=== PATIENT | male | born 1990 | race Caucasian/White ===

== ENCOUNTER 2019-09-14 10:39 | Emergency (ER) | payer SELFPAY ==
--- NOTE | ~2019-09-14 | XR_ITS ---
LUMBAR SPINE INDICATION: Low back pain TECHNIQUE: 5 views lumbar spine COMPARISON: None FINDINGS: No fracture, subluxation or dislocation. No evidence for spondylolysis or spondylolisthesi s. Vertebral bodies and disk spaces are preserved. IMPRESSION: 1: No significant abnormality of the lumbar spine identified. Reviewed, dictated and finalized at [facility].
[2019-09-14 10:50] VITALS: BP 159/104; PULSE 115; RESP 18; TEMP 37.1; O2SAT 97
--- NOTE | 2019-09-14 12:46 | ED.BACK ---
HPI - Back Pain/Injury General Chief Complaint: Back Pain/Injury Stated Complaint: lower back pain Time Seen by Provider: 09/14/19 11:13 Source: patient Mode of arrival: ambulatory Limitations: no limitations History of Present Illness HPI Narrative: patient is a 29-year-old male who presents to emergency department for evaluation of low back pain noting left lower back pain over the SI joint is an aching pain worse for the last 5 days. Has been taking [id number] medications with minimal improvement. Patient denies any fever chills nausea vomiting injury trauma weakness or other complaints. Patient is able to ambulate with normal gait patient has not been seen for this Related Data Allergies Allergy/AdvReac Type Severity Reaction Status Date / Time No Known Allergies Allergy Verified 09/14/19 11:25 Review of Systems Review of Systems: All systems reviewed & are unremarkable except as noted in HPI and below PMFSH Social History Social History (Updated 09/14/19 @ 12:47 by Duong Daniels PA-C) Smoking status: Current every day smoker Gender identity (if verbalized by the patient): Male Exam Narrative: Exam Narrative: GENERAL: Well-appearing, well-nourished, and in no acute distress. HEAD: Normocephalic, atraumatic. EYES: PERRLA and EOMI. ENT: Nares clear, no rhinorrhea or epistaxis. Mucous membranes moist. CHEST: Clear to auscultation. No respiratory distress. No wheezes rales or rhonchi HEART: Regular rate and rhythm. No murmur heard. EXTREMITIES: Normal range of motion. No edema. Tenderness over the left SI joint no deformities otherwise noted no midline tenderness SKIN: Warm, dry, no rash. NEURO: No focal deficits. Alert and oriented x3. Cranial nerves II through XII grossly intact. Motor and sensory intact and symmetrical in the extremities. Normal speech and gait PSYCH: Normal mood and affect. Course Course Emergency Course: Patient in the room in no distress aware of case findings treatment plan and diagnosis agreeing to follow-up as directed Vital Signs Vital signs: Vital Signs Temperature 98.7 F 09/14/19 10:50 Pulse Rate 115 H 09/14/19 10:50 Respiratory Rate 18 09/14/19 10:50 Blood Pressure 159/104 H 09/14/19 10:50 Pulse Oximetry 97 09/14/19 10:50 Temperature 98.7 F 09/14/19 10:50 Pulse Rate 115 H 09/14/19 10:50 Respiratory Rate 18 09/14/19 10:50 Blood Pressure 159/104 H 09/14/19 10:50 Pulse Oximetry 97 09/14/19 10:50 MDM - Back Pain/Injury MDM Narrative Medical decision making narrative: Patients pain is positional in nature and localized to back without signs of cord compression or cauda equina based on neurological exam, skeletal exam and history. No fever or other significant factors to suggest osteomyelitis or spinal epidural abscess. No symptoms or signs to suggest pain is referred from abdominal or / cardiopulmonary sources. No pulsatile masses noted on exam. Patient ambulates with steady gait and is stable for outpatient management given case findings. Discharge Plan Discharge Clinical Impression: Lumbar radiculopathy Patient Disposition: Home, Self-Care Condition: Stable Instructions: Antibiotic Form, Acute Low Back Pain (ED) Additional Instructions: Medications as needed and prescribed. Limit lifting and bending. You may apply heat or cold to the area as needed. Follow up with your doctor for further care in the next 7 days. Contact your doctor or return to the emergency department if you develop problems with bladder or bowel function, weakness or loss of feeling in one or both of your legs, or any other serious concerns. Prescriptions: New cyclobenzaprine 10 mg tablet 10 mg PO TID PRN (Reason: muscle spasm) Qty: 14 RF: 0 naproxen 500 mg tablet 500 mg PO BID PRN (Reason: pain) Qty: 7 RF: 0 Follow-up/Referrals: Herson Erickson MD [Physician] - PHYSICIAN,[employer] [Primary Care Provider] -
== END 2019-09-14 12:56 | disposition home or self-care (01) ==
PROVIDERS: Emergency Provider Emergency Medicine
DX: M54.16 Radiculopathy, lumbar region (principal); F17.200 Nicotine dependence, unspecified, uncomplicated
CPT/HCPCS: 72110; 99283

== ENCOUNTER 2019-09-20 18:44 | Emergency (ER) | payer SELFPAY ==
[2019-09-20 19:06] VITALS: BP 156/95; PULSE 104; RESP 20; TEMP 36.8; O2SAT 97
== END 2019-09-20 19:40 | disposition left against medical advice (07) ==
LOC: CHSED 18:46
PROVIDERS: Emergency Provider Emergency Medicine; PCP Family Medicine
DX: Z53.8 Procedure and treatment not carried out for other reasons (principal)
CPT/HCPCS: 99199

== ENCOUNTER 2020-10-23 16:17 | Emergency (ER) | payer SELFPAY ==
[2020-10-23 16:19] VITALS: BP 145/90; PULSE 108; RESP 20; TEMP 37.4; O2SAT 98
[2020-10-23] MEDS: LIDOCAINE HCL 1% LOCAL INJ 20 ML VIAL (17:54)
--- NOTE | 2020-10-23 17:54 | ED.GENADULT ---
HPI - General Adult General Chief complaint: Wound/Laceration Stated complaint: Bite down south Time Seen by Provider: 10/23/20 16:26 Source: patient, family and RN notes reviewed Mode of arrival: ambulatory Limitations: no limitations History of Present Illness HPI narrative: Patient is a 30-year-old male who presents with wound in the perineum just below the scrotum notes that it started as a small pimple and has worsened has been able to express purulent drainage presents to emergency department given increasing in size over the last day patient denies fever chills nausea vomiting or other complaints Related Data Allergies Allergy/AdvReac Type Severity Reaction Status Date / Time No Known Allergies Allergy Verified 10/23/20 16:23 Review of Systems Review of Systems: All systems reviewed & are unremarkable except as noted in HPI and below PMFSH Past Medical History Medical History Chronic anxiety History of fracture of right ankle Pain of left sacroiliac joint Surgical History Surgical History Hx of foot surgery (~2006) Family History Family History (Updated 09/16/19 @ 15:11 by Anabel Apodaca MA) Mother No problems noted. Grandparent Hypertension Social History Social History Smoking status: Current every day smoker Gender identity (if verbalized by the patient): Male Exam Narrative: Exam Narrative: GENERAL: Well-appearing, well-nourished, and in no acute distress. HEAD: Normocephalic, atraumatic. EYES: PERRLA and EOMI. ENT: Nares clear, no rhinorrhea or epistaxis. Mucous membranes moist. CHEST: Clear to auscultation. No respiratory distress. No wheezes rales or rhonchi HEART: Regular rate and rhythm. No murmur heard. Normal peripheral pulses. EXTREMITIES: Normal range of motion. No edema. SKIN: Warm, dry, no rash. Patient with 1 cm tender nonerythematous draining lesion in the right lower perineum just below the scrotum NEURO: No focal deficits. Alert and oriented x3. Neurovascularly intact PSYCH: Normal mood and affect. Course Course Emergency Course: Patient in the room no distress aware of case findings treatment plan and diagnosis agreeing to follow-up as instructed Vital Signs Vital signs: Vital Signs Temperature 99.3 F 10/23/20 16:19 Pulse Rate 108 H 10/23/20 16:19 Respiratory Rate 20 10/23/20 16:19 Blood Pressure 145/90 H 10/23/20 16:19 Pulse Oximetry 98 10/23/20 16:19 Temperature 99.3 F 10/23/20 16:19 Pulse Rate 108 H 10/23/20 16:19 Respiratory Rate 20 10/23/20 16:19 Blood Pressure 145/90 H 10/23/20 16:19 Pulse Oximetry 98 10/23/20 16:19 Procedures Abscess I/D luigi-rectal: Date of Incision: 10/23/20 Time of Incision: 17:58 Side (if applicable): right Local Anesthetic: lidocaine 1% Technique: incised with #11 blade Amount of fluid expressed (mL): 1 Irrigation: No Packing used?: none I&D Results: Pus and Blood Medical Decision Making MDM Narrative Medical decision making narrative: Patient had I&D of skin abscess cultures were obtained patient will be following with primary care for further evaluation given reasons to return Vital Signs Vital Signs: Vital Signs Temperature 99.3 F 10/23/20 16:19 Pulse Rate 108 H 10/23/20 16:19 Respiratory Rate 20 10/23/20 16:19 Blood Pressure 145/90 H 10/23/20 16:19 Pulse Oximetry 98 10/23/20 16:19 Temperature 99.3 F 10/23/20 16:19 Pulse Rate 108 H 10/23/20 16:19 Respiratory Rate 20 10/23/20 16:19 Blood Pressure 145/90 H 10/23/20 16:19 Pulse Oximetry 98 10/23/20 16:19 Discharge Plan Discharge Clinical Impression: Abscess Patient Disposition: Home, Self-Care Condition: Stable Instructions: Antibiotic Form, Abscess (ED)
[2020-10-23] MEDS: HYDROcodone/acetaminophen (*CRX) 5-325 MG TABLET 1 TAB PO (17:55)
[2020-10-23] MEDS: IBUPROFEN 600 MG TABLET PO (17:55)
== END 2020-10-23 18:20 | disposition home or self-care (01) ==
PROVIDERS: Emergency Provider Emergency Medicine
DX: L02.214 Cutaneous abscess of groin (principal); F17.200 Nicotine dependence, unspecified, uncomplicated
CPT/HCPCS: 10060; 46040; 87070; 87075; 87147; 87186; 87205; 99283; A9270

== ENCOUNTER 2020-11-27 09:10 | Emergency (ER) | payer OTHER, SELFPAY ==
--- NOTE | ~2020-11-27 | CT_ITS ---
EXAMINATION: CT diagnostic chest wo con DATE: 11/27/2020 10:58 INDICATION: Chest pain for 2 days. Covid-positive. TECHNIQUE: Computed tomography (CT) of the chest was performed without intravenous contrast. Automate d exposure control and iterative reconstruction technique were employed. Exam dose: 273.25 mGy-cm to jacques exam DLP. COMPARISON: None FINDINGS: Scattered occasional bilateral patchy mild groundglass infiltrates, consistent with mild bi lateral multifocal pneumonia. No hilar or mediastinal mass lesion or lymphadenopathy. Normal heart size. No pericardial or pleural effusion. Normal morphology of the adrenal glands. Included upper abdominal structures are unremarkable. Included skeletal structures are unremarkable. IMPRESSION: Scattered occasional bilateral patchy pulmonary infiltrates consistent with bilateral mu ltifocal pneumonia Reviewed, dictated and finalized at [facility]. Reviewed, dictated and finalized at [facility]. IMPRESSION: Scattered occasional bilateral patchy pulmonary infiltrates consis tent with bilateral multifocal pneumonia
[2020-11-27 09:30] VITALS: BP 157/110; PULSE 70; RESP 16; TEMP 36.7; O2SAT 97
--- NOTE | 2020-11-27 09:32 | ECG_ITS ---
Measurements Intervals [place] Rate: 64 P: 56 W[place]: 172 QRS: 61 QRSD: 98 T: 48 QT: 372 QTc: 386 Interpretive Statements SINUS RHYTHM POSSIBLE LEFT ATRIAL ENLARGEMENT INCOMPLETE RIGHT BUNDLE BRANCH BLOCK ST ELEVATION IN DIFFUSE LEADSCONSISTENT EARLY REPOLARIZATION BORDERLINE ECG Electronically Signed On 11-28-2020 7:04:29 CDT by Nick English D.O.
[2020-11-27] MEDS: ONDANSETRON INJ 4 MG/2 ML VIAL IV PUSH (10:05)
--- NOTE | 2020-11-27 10:06 | PC.NURSE ---
Pt declines morphine for pain at this time.
[2020-11-27 10:07] LABS: Basophils Absolute Auto 0.02 K/mm3 (0.00-0.10); Basophils Percent Auto 0.2 % (0.0-1.0); Eosinophils Absolute Auto 0.12 K/mm3 (0.02-0.50); Eosinophils Percent Auto 1.1 % (1.0-6.0); Hematocrit 49.4 % (40.0-54.0); Hemoglobin 17.3 g/dL (14.0-18.0); Immature Granulocyte Absolute 0.03 K/mm3 (0.00-0.00); Immature Granulocyte Percent A 0.3 % (0.0-0.0); Lymphocytes Absolute Auto 1.29 K/mm3 (1.10-4.50); Lymphocytes Percent Auto 12.1 % (18.0-42.0); Mean Corpuscular Hemoglobin 30.9 pg (27.0-31.0); Mean Corpuscular Volume 88.4 fL (78.0-102.0); Mean Platelet Volume 9.8 fl (8.7-11.0); Monocytes Absolute Auto 0.91 K/mm3 (0.10-0.90); Monocytes Percent Auto 8.5 % (2.0-11.0); Neutrophils Absolute Auto 8.3 K/mm3 (1.7-7.2); Neutrophils Percent Auto 77.8 % (50.0-70.0); Platelet Count Result 293 K/mm3 (150-420); Red Blood Count 5.59 M/mm3 (4.70-6.10); Red Cell Distribution Width 12.1 % (11.6-14.4); White Blood Count 10.7 K/mm3 (4.8-10.8)
--- NOTE | 2020-11-27 10:10 | ED.CHESTPAIN ---
HPI - Chest Pain General Chief Complaint: Chest Pain Stated Complaint: right side chest pain Time Seen by Provider: 11/27/20 09:14 Source: patient and RN notes reviewed Mode of arrival: ambulatory Limitations: no limitations History of Present Illness complaint: chest pain (lower right lateral lung pleuritic pain) Pertinent past history: other (covid + x several days. pt is a smoker.) Onset (ago): day(s) (1) Timing of current episode: constant Prior episodes: No Onset: during rest and during exertion Pain location: right chest and lateral Pain radiation: none Severity: moderate Pain scale (0-10): 6 Quality: dull and tearing Relieving factors: nothing Exacerbating factors: inspiration Context: recent illness Associated symptoms: cough Treatment prior to arrival: none Risk Factors Coronary artery disease risk factors: smoking history Thoracic aortic dissection risk factors: none Related Data Allergies Allergy/AdvReac Type Severity Reaction Status Date / Time No Known Allergies Allergy Verified 10/23/20 16:23 Review of Systems Review of Systems: All systems reviewed & are unremarkable except as noted in HPI and below Constitutional: Constitutional: Reports as per HPI and Reports no additional constitutional complaints Eyes: Eyes: Reports as per HPI and Reports no additional eye complaints ENT: Reports system reviewed and no additional complaints, except as documented and Reports as per HPI Cardiovascular: Cardiovascular: Reports as per HPI, Reports no additional cardiovascular complaints and Reports chest pain Respiratory: Respiratory: Reports as per HPI and Reports no additional respiratory complaints Gastrointestinal: Gastrointestinal: Reports as per HPI and Reports no additional gastrointestinal complaints Genitourinary: Genitourinary: Reports no additional male genitourinary complaints and Reports as per HPI Musculoskeletal: Musculoskeletal: Reports no additional musculoskeletal complaints and Reports as per HPI Integumentary/Breasts: Skin/Breast: Reports system reviewed and no additional complaints, except as docu and Reports as per HPI Neurologic: Reports system reviewed and no additional complaints, except as documented and Reports as per HPI Psychiatric: Psychiatric: Reports no additional psychiatric complaints and Reports as per HPI Endocrine: Endocrine: Reports no additional endocrine complaints and Reports as per HPI Hematologic/Lymphatic: Hematologic/Lymphatic: Reports no additional hematologic/lymphatic complaints and Reports as per HPI Allergic/Immunologic: Allergic/Immunologic: Reports no additional allergic/immunologic complaints and Reports as per HPI [facility] Past Medical History Medical History Chronic anxiety History of fracture of right ankle Pain of left sacroiliac joint Surgical History Surgical History Hx of foot surgery (~2006) Family History Family History Mother No problems noted. Grandparent Hypertension Social History Social History Smoking status: Current every day smoker Gender identity (if verbalized by the patient): Male Exam Const: General: no acute distress and alert Nutritional Appearance: well nourished Orientation/consciousness: patient oriented x3 Limitations: no limitations HENMT: Head: normal to inspection Ears: external ears normal and TM's normal bilaterally General nose exam: Normal external nose present and Normal nares present Mouth: Yes lip normal and Yes moist mucous membranes Teeth and gingiva: dentition normal Eyes: Conjunctivae: conjunctivae normal Pupils: Equal, round and reactive pupils present EOM: EOMs intact bilaterally Neck: Neck: normal visual inspection Chest: Chest palpation & inspection: sheridan
[2020-11-27 10:14] VITALS: BP 150/104; PULSE 76; RESP 20; O2SAT 97
[2020-11-27] MEDS: cloNIDine HCL 0.2 MG TABLET PO (10:24)
[2020-11-27] MEDS: methylPREDNISolone SOD SUCC 125 MG VIAL IV PUSH (10:24)
[2020-11-27 10:36] LABS: Alanine Aminotransferase 57 U/L (16-63); Albumin Level 4.5 g/dL (3.4-5.0); Alkaline Phosphatase 100 U/L (46-116); Anion Gap 11 mmol/L (8-16); Aspartate Amino Transferase 32 U/L (15-37); Bilirubin,Total 0.7 mg/dL (0.00-1.00); Blood Urea Nitrogen 15 mg/dL (7-18); Calcium 9.2 mg/dL (8.5-10.1); Carbon Dioxide 26 mmol/L (21-32); Chloride 103 mmol/L (98-108); Estimated CRCL calculation 118 ml/min; Estimated Glomerular Filt Rate > 60; Glucose 112 mg/dL (70-99); Osmolality Calculated 291 mOsm/kg (285-295); Potassium 4.4 mmol/L (3.5-5.1); Sodium 140 mmol/L (136-145); Total Protein 8.5 g/dL (6.4-8.2)
[2020-11-27 10:37] LABS: Troponin I < 4.0 ng/L (0.00-60.4)
[2020-11-27 11:17] VITALS: BP 131/94; PULSE 81; O2SAT 96
[2020-11-27] MEDS: AZITHROMYCIN 250 MG TABLET 500 MG PO (12:25)
[2020-11-27] MEDS: KETOROLAC (*BKC) 60 MG/2 ML VIAL IM (12:29)
[2020-11-27 12:45] LABS: Base Excess ABG -0.1 mmol/L (0-2); HCO3 ABG 23.3 mmol/L (23-29); Oxygen Content ABG 24.3 %vol (16.0-22.0); Oxygen Saturation ABG 96.6 % (95-97); Oxyhemoglobin 95.9 % (94-100); PCO2 ABG 34.8 mmHg (35-45); PO2 ABG 83.6 mmHg (80-90); pH ABG 7.44 (7.35-7.45)
[2020-11-27 12:46] LABS: Device ROOM AIR; Modified Allen's Test Pass; Site Drawn RIGHT RADIAL
[2020-11-27 12:52] VITALS: BP 131/81; PULSE 80; RESP 16; O2SAT 96
== END 2020-11-27 12:53 | disposition home or self-care (01) ==
PROVIDERS: Emergency Provider Emergency Medicine
DX: U07.1 COVID-19 (principal); J12.82 Pneumonia due to coronavirus disease 2019; R09.1 Pleurisy
CPT/HCPCS: 36415; 36600; 71250; 80053; 82805; 83605; 84484; 85025; 93005; 96365; 96372; 96375; 99283; 99284; A9270; J0696; J1885; J2405; J2930

== ENCOUNTER 2020-12-24 10:52 | Emergency (ER) | payer SELFPAY ==
[2020-12-24 11:00] VITALS: BP 156/100; PULSE 91; RESP 20; TEMP 37.2; O2SAT 97
[2020-12-24] MEDS: ACETAMINOPHEN 500 MG TABLET 1000 MG PO (11:19)
[2020-12-24 11:32] LABS: Influenza Control Valid (Valid)
[2020-12-24 11:33] LABS: SARS-CoV-2 Ag Negative (Negative)
[2020-12-24 11:36] VITALS: TEMP 37.1
--- NOTE | 2020-12-24 11:37 | ED.URI ---
HPI - URI/Sore Throat General Chief Complaint: Upper Respiratory Infection Stated Complaint: sore throat, chills, fatigue Source: patient Mode of arrival: ambulatory Limitations: no limitations History of Present Illness HPI Narrative: This is a 30-year-old gentleman that presents with a cough and congestion, was diagnosed with COVID approximately 1 month ago. Currently there is no shortness of breath no fever chills, although he feels like he has above ejected of fever with chills with a nonproductive cough with no nausea vomiting no chest pain. MD elicited complaint: fever and cough Onset (ago): day(s) Consistency: constant Severity: moderate Able to tolerate fluids by mouth: Yes Related Data Allergies Allergy/AdvReac Type Severity Reaction Status Date / Time No Known Allergies Allergy Verified 10/23/20 16:23 Review of Systems Review of Systems: All systems reviewed & are unremarkable except as noted in HPI and below PMFSH Past Medical History Medical History Chronic anxiety History of fracture of right ankle Pain of left sacroiliac joint Surgical History Surgical History Hx of foot surgery (~2006) Family History Family History Mother No problems noted. Grandparent Hypertension Social History Social History Smoking status: Current every day smoker Gender identity (if verbalized by the patient): Male Exam Const: General: no acute distress and alert Orientation/consciousness: patient oriented x3 HENMT: Head: normal to inspection Eyes: Conjunctivae: conjunctivae normal Pupils: Equal, round and reactive pupils present Neck: Neck: normal visual inspection Chest: Chest palpation & inspection: normal inspection of the chest Resp: Effort & Inspection: normal respiratory effort Auscultation: clear to auscultation bilaterally Cardio: Rate: regular rate Rhythm: regular rhythm GI: GI Palp: Yes Soft to palpation Urinary Catheter: Urinary Catheter: patent and draining Skin: General skin exam: normal color Rashes: no rashes Psych: Mental Status: mental status grossly normal Course Course Emergency Course: A strep, COVID and influenza are negative will send antibiotic and a cough I will medicine to his pharmacy and will give him a shot of ceftriaxone IM prior to departure from the ER. Vital Signs Vital signs: Vital Signs Temperature 37.2 C 12/24/20 11:00 Pulse Rate 91 12/24/20 11:00 Respiratory Rate 20 12/24/20 11:00 Blood Pressure 156/100 H 12/24/20 11:00 Pulse Oximetry 97 12/24/20 11:00 Temperature 37.1 C 12/24/20 11:36 Pulse Rate 91 12/24/20 11:00 Respiratory Rate 20 12/24/20 11:00 Blood Pressure 156/100 H 12/24/20 11:00 Pulse Oximetry 97 12/24/20 11:00 MDM - URI/Sore Throat Lab Data Labs: Lab Results 12/24/20 12/24/20 Range/Units 11:07 11:07 Influenza Type A Ag Negative (Negative) Influenza Type B Ag Negative (Negative) SARS-CoV-2 Ag (Rapid) Negative (Negative) Grp A Beta Strep Ag Negative Critical Care Time Critical Care Time Critical Care Time: No Discharge Plan Discharge Clinical Impression: URI with cough and congestion Patient Disposition: Home, Self-Care Condition: Stable Instructions: Antibiotic Form, Upper Respiratory Infection (ED) Additional Instructions: take medicine as prescribed and follow-up with primary care physician if symptoms persist or worsen. Prescriptions: New levofloxacin 500 mg tablet 500 mg PO DAILY 7 Days Qty: 7 RF: 0 benzonatate [Tessalon Perles] 100 mg capsule 100 mg PO TID Qty: 20 RF: 0 Follow-up/Referrals: UNKNOWN,DOCTOR [Primary Care Provider] - Time of Disposition: 11:41
[2020-12-24] MEDS: cefTRIAXone 1 GM VIAL IM (11:40)
[2020-12-24] MEDS: LIDOCAINE HCL 1% LOCAL INJ 20 ML VIAL (11:40)
[2020-12-24 11:42] VITALS: BP 140/87; PULSE 90; RESP 18; TEMP 37.1; O2SAT 99
== END 2020-12-24 11:51 | disposition home or self-care (01) ==
PROVIDERS: Emergency Provider Emergency Medicine
DX: J06.9 Acute upper respiratory infection, unspecified (principal); R05 Cough; Z20.822 Contact with and (suspected) exposure to COVID-19
CPT/HCPCS: 87081; 87426; 87804; 87880; 96372; 99283; C9803; J0696

== ENCOUNTER 2020-12-26 11:56 | Inpatient (IN) | payer SELFPAY ==
[2020-12-26] VITALS (25 sets, daily range): BP systolic 132–156; BP diastolic 76–98; PULSE 102–126; RESP 13–28; TEMP 36.9–38.2; O2SAT 94–100
--- NOTE | ~2020-12-26 | CT_ITS ---
EXAMINATION: CT abdomen pelvis w con DATE: 12/26/2020 14:01 INDICATION: Nausea and vomiting. Abnormal liver function tests. Fever and chills. TECHNIQUE: Computed tomography (CT) of the abdomen and pelvis was performed with 100 mL Omnipaque 350 intravenous contrast. Automated exposure control and iterative reconstruction technique were employe d. The dose-length product was 696.68 mGy-cm. COMPARISON: Chest CT 11/27/2020 FINDINGS: The visualized portions of the lung bases demonstrate mild atelectasis. No pleural effusion . The heart size is normal. No pericardial effusion. The liver, gallbladder, spleen, pancreas, adrena l glands, and kidneys are normal. There are no dilated loops of bowel. The appendix is normal. There are no pathologically enlarged lymph nodes. There is no free intraperitoneal fluid. There are bilater al inguinal hernias containing fat. There are benign bone islands in the pelvis. There is mild lumbar spondylosis. IMPRESSION: 1. No etiology for the patient's symptoms. Reviewed, dictated and finalized at location A.
--- NOTE | ~2020-12-26 | XR_ITS ---
XR chest 2V 12/26/2020 12:55 Indication: Shortness of breath Procedure: 2 view chest Comparison: No prior studies for comparison. Findings: Subtle ill-defined patchy bilateral infiltrates, suspicious for pneumonia. No pleural effus ion. Heart size normal. No pneumothorax. Impression: 1: Subtle patchy bilateral infiltrates, suspicious for pneumonia. Reviewed, dictated and finalized at location A. Impression: 1: Subtle patchy bilateral infiltrates, suspicious for pneumonia.
--- NOTE | ~2020-12-26 | US_ITS ---
EXAMINATION: US abdomen limited EXAM DATE: 12/27/2020 11:39 INDICATION: Elevated alk phosphatase, liver function tests. TECHNIQUE: Multiple grayscale and Doppler images of the abdomen right upper quadrant were obtained (b y a technologist who performed the scan) and subsequently reviewed. Correlation is made to CT abdomen pelvis from yesterday. FINDINGS: The pancreatic head and body are normal in appearance. The pancreatic tail is not visualized. The l iver has normal echogenicity and contour. There are no focal liver lesions identified. There is no evidence of intrahepatic biliary duct dilation. Portal venous flow was seen in the hepatopedal, nor mal direction and has normal Doppler waveform. No right-sided hydronephrosis. Common bile duct measures 5 mm, which is normal. The gallbladder wall is normal in thickness, with ex pected amount of distention. No sonographic evidence of pericholecystic fluid. There is no cholelit hiases. Technologist performing exam reports patient did not demonstrate sonographic Davidson's sign. Please note that this sign is less reliable in patients who have received pain medication. IMPRESSION: 1. Unremarkable abdominal ultrasound exam. Reviewed, dictated and finalized at location B.
--- NOTE | ~2020-12-26 | CT_ITS ---
EXAMINATION: CT soft tissue neck w con DATE: 12/26/2020 14:02 INDICATION: Sore throat. Fever and chills. TECHNIQUE: Computed tomography (CT) of the neck was performed with 100 mL Omnipaque-350 intravenous c ontrast. Automated exposure control and iterative reconstruction technique were employed. The dose-le ngth product was 531.69 mGy-cm. COMPARISON: Chest CT 11/27/2020 FINDINGS: There are sialoliths in the right parotid gland. There is enlargement of the adenoids and p alatine tonsils. The epiglottis is normal. There is a retropharyngeal effusion. There is a right-side d tracheal diverticulum at the thoracic inlet. There is mild bilateral internal jugular chain lymphad enopathy. There is mucosal thickening in the paranasal sinuses. The mastoid air cells are normal. The re is kyphosis and mild spondylosis of cervical spine. IMPRESSION: 1. Enlargement of the adenoids and palatine tonsils, consistent with inflammation. No abscess. 2. Retropharyngeal effusion. 3. Mild bilateral cervical lymphadenopathy, likely reactive. Reviewed, dictated and finalized at location A. IMPRESSION: 1. Enlargement of the adenoids and palatine tonsils, consistent with inflammati on. No abscess. 2. Retropharyngeal effusion. 3. Mild bilateral cervical lymphadenopathy, likely reactive.
--- NOTE | 2020-12-26 12:51 | PC.NURSE ---
Pt off floor to radiology
[2020-12-26] MEDS: SODIUM CHLORIDE 0.9% IV 1,000 ML 999 ML IV CONT (13:15)
[2020-12-26 13:27] LABS: Basophils Absolute Auto 0.1 K/mm3 (0.0-0.1); Basophils Percent Auto 0.4 % (0.2-1.2); Eosinophils Absolute Auto 0.2 K/mm3 (0-0.3); Eosinophils Percent Auto 1.8 % (0-4.4); Hematocrit 46.7 % (42.0-52.0); Hemoglobin 16.4 g/dL (14.0-18.0); Immature Granulocyte Absolute 0.09 K/mm3 (0.00-0.031); Immature Granulocyte Percent A 0.8 % (0-0.5); Lymphocytes Absolute Auto 0.31 K/mm3 (0.9-3.2); Lymphocytes Percent Auto 2.7 % (18.3-44.2); Mean Corpuscular HGB Conc 35.1 g/dl (32-36); Mean Corpuscular Hemoglobin 31.4 pg (26-34); Mean Corpuscular Volume 89.3 fl (80-100); Mean Platelet Volume 9.9 fl (7.4-10.4); Monocytes Absolute Auto 0.5 K/mm3 (0.1-0.6); Monocytes Percent Auto 4.5 % (2.6-8.5); Neutrophils Absolute Auto 10.2 K/mm3 (1.3-6.7); Neutrophils Percent Auto 89.8 % (45.5-73.1); Platelet Count Result 180 k/mm3 (150-375); Red Blood Count 5.23 M/mm3 (4.6-6.20); Red Cell Distribution Width 12.9 % (11.5-14.5); White Blood Count 11.4 K/mm3 (4.5-10.0)
[2020-12-26 13:38] LABS: Alanine Aminotransferase 101 U/L (4-50); Albumin Level 4.6 g/dL (3.5-5.1); Alkaline Phosphatase 180 U/L (38-126); Anion Gap 16 mmol/L (8-16); Aspartate Amino Transferase 73 U/L (17-59); Blood Urea Nitrogen 12 mg/dL (9-20); Calcium 9.4 mg/dL (8.4-10.2); Carbon Dioxide 24 mmol/L (22-30); Chloride 97 mmol/L (98-107); Estimated CRCL calculation 117 ml/min; Estimated Glomerular Filt Rate > 60; Glucose 142 mg/dL (65-110); Lipase 32 U/L (23-300); Potassium 4.4 mmol/L (3.4-5.0); Sodium 137 mmol/L (137-145)
--- NOTE | 2020-12-26 13:52 | ED.GENADULT ---
HPI - General Adult General Chief complaint: Fever Stated complaint: Vomiting,Fever,Chills Time Seen by Provider: 12/26/20 12:35 Source: patient History of Present Illness HPI narrative: Patient is a 30 y/o male complaining of fever since last Saturday (3 days). He states that his fever is up to 102 at home. He takes Tylenol and Ibuprofen, which helps to reduce the fever, but the fever usually comes back. He also has sore throat, cough, vomiting and diarrhea. He states that he feels like dying. He states that he was seen at [place] 3 days ago, prescribed Levaquin. However, his symptoms are getting worse. Related Data Home Medications Medication Instructions Recorded Confirmed acetaminophen [Tylenol] 325 mg PO ONCE PRN 12/26/20 ibuprofen 200 mg PO Q6H PRN 12/26/20 Allergies Allergy/AdvReac Type Severity Reaction Status Date / Time No Known Allergies Allergy Verified 12/26/20 13:02 Review of Systems Constitutional: Constitutional: Reports chills, Reports fever(s), Denies headache(s) and Reports weakness Eyes: Eyes: Denies blurry vision ENT: Denies headache(s), Denies neck pain and Reports sore throat Cardiovascular: Cardiovascular: Denies chest pain and Denies dyspnea Respiratory: Respiratory: Reports cough and Denies dyspnea Gastrointestinal: Gastrointestinal: Denies abdominal pain, Reports diarrhea, Reports nausea and Reports vomiting Genitourinary: Genitourinary: Denies hematuria and Denies dysuria Musculoskeletal: Musculoskeletal: Denies back pain and Denies neck pain Neurologic: Denies headache(s) and Denies weakness [facility] Past Medical History Medical History Chronic anxiety History of fracture of right ankle Pain of left sacroiliac joint Surgical History Surgical History Hx of foot surgery (~2006) Family History Family History Mother No problems noted. Grandparent Hypertension Social History Social History Smoking status: Current every day smoker Gender identity (if verbalized by the patient): Male Exam Const: General: no acute distress and ill appearing Orientation/consciousness: oriented to person, oriented to place, oriented to time and patient oriented x3 HENMT: Head: normocephalic Ears: external ears normal General nose exam: Normal external nose present Eyes: General: appearance normal, both eyes and all related structures Conjunctivae: conjunctivae normal Neck: Neck: normal visual inspection and full ROM Chest: Chest palpation & inspection: normal inspection of the chest and no tenderness Resp: Effort & Inspection: normal respiratory effort Auscultation: clear to auscultation bilaterally Cardio: Rate: tachycardic Rhythm: regular rhythm GI: GI Palp: No abdominal tenderness and Yes Soft to palpation Skin: General skin exam: normal color and turgor normal Neuro: General: oriented to person, oriented to place, oriented to time and patient oriented x3 Cognition (Neuro): normal cognition Extrem: General: normal to inspection, full ROM and no pedal edema Psych: Appearance: grossly normal Mental Status: mental status grossly normal Affect: normal affect Course Consultations Consultation #1: Discussed with Dr. Huang, who recommends IV steroids as well as IV antibiotics. He will see the patient for consult. Date: 12/26/20 Time: 14:29 Consultation #2: Discussed with CHARMAINE Koenig, who agrees to admit. Date: 12/26/20 Time: 14:45 Vital Signs Vital signs: Vital Signs Temperature 37.9 C H 12/26/20 12:16 Pulse Rate 126 H 12/26/20 12:16 Respiratory Rate 16 12/26/20 12:16 Blood Pressure 136/98 H 12/26/20 12:16 Pulse Oximetry 100 12/26/20 12:16 Temperature 38.2 C H 12/26/20 12:57 Pulse Rate 113 H 12/26/20 16:47 Respiratory Rate 23 H
[2020-12-26 14:54] LABS: Add Urine Microscopic? YES; Appearance Urine Clear (Clear); Bilirubin Urine Negative (Negative); Blood Urine 2+ (Negative); Color Urine Amber (Yellow); Glucose Urine UA Negative (Negative); Ketones Urine 2+ mg/dL (Negative); Leukocyte Esterase Ur Negative LEU/UL (Negative); Mucus Urine Rare /lpf; Nitrate Urine Negative (Negative); Protein Urine 2+ mg/dL (Negative); RBC Urine 21-50 /hpf (0-2); WBC Urine 0-3 /hpf
[2020-12-26 14:58] LABS: Specific Grav Ur 1.053 (1.001-1.035)
[2020-12-26 15:05] LABS: Lactic Acid Reflex 1.5 mmol/L (0.7-2.1)
[2020-12-26 15:15] LABS: Monoscreen Negative (Negative); Negative Monotest Control Negative (Negative); Positive Monotest Control Positive (Positive)
--- NOTE | 2020-12-26 16:58 | PC.NURSE ---
Returned call of patient's mother, Zita ([phone]), with patient's permission to give update.
--- NOTE | 2020-12-26 17:56 | PC.NURSE ---
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
[2020-12-26] MEDS: BENZOCAINE/MENTHOL (*BKC) 18 EA LOZENGE 1 LOZENGE PO ×2 (18:29→19:58)
[2020-12-26] MEDS: SODIUM CHLORIDE 0.9% IV 1,000 ML 125 ML IV CONT (18:43)
--- NOTE | 2020-12-26 18:58 | WPDCN ---
Assessment and Plan Assessment and plan (1) Pharyngitis: Qualifiers: Pharyngitis/tonsillitis etiology: unspecified etiology Qualified Code(s): J02.9 - Acute pharyngitis, unspecified Code(s): J02.9 - Acute pharyngitis, unspecified Status: Acute Assessment and Plan: Patient clinically appears to have a viral infection. Recommend 8mg of decadron q8 hours for a total of three doses. Could cover for bacterial infection if the patient fails to improve in 24 hours. Ok to eat. Please call with any urgent issues/questions. (2) Abnormal LFTs (liver function tests): Code(s): R94.5 - Abnormal results of liver function studies Status: Acute HPI Data of Consult Date/Time: 12/26/20 18:58 Requesting Physician: Edin Joya MD Primary Care Provider: VICE PRESIDENT OF COMPLIANCE PHYSICIAN Consult Narrative Narrative: Ranjith Cano is a 30 year old male with several days of malaise and throat pain. CT demonstrates overall mild pharyngeal edema, some retropharyngeal edema as well, b/l lymphadenopathy. White count normal, rapid mono negative per ER. Patient denies recent sick contacts. Reports feeling better since his admission Review of Systems Constitutional: Constitutional: Denies fever(s) Eyes: Eyes: Denies blurry vision and Denies change in vision ENT: Reports as per HPI Cardiovascular: Cardiovascular: Denies chest pain Hematologic/Lymphatic: Hematologic/Lymphatic: Denies easy bleeding and Denies easy bruising Allergic/Immunologic: Allergic/Immunologic: Denies seasonal rhinorrhea PMFSH Past Medical History Medical History Chronic anxiety History of fracture of right ankle Pain of left sacroiliac joint Surgical History Surgical History Hx of foot surgery (~2006) Family History Family History Mother No problems noted. Grandparent Hypertension Social History Social History Smoking packs per day: 0.5 Smoking cigarettes per day: 10.0 Smoking status: Current every day smoker Tobacco type: cigarettes Second hand tobacco smoke exposure: Yes Alcohol intake: current Substance use: current Substance use type: marijuana Gender identity (if verbalized by the patient): Male Spiritual care concerns: No Meds Home Medications and Allergies Home Medications Medication Instructions Recorded Confirmed Type benzonatate [Tessalon Perles] 100 mg PO TID #20 cap 12/24/20 Rx levofloxacin 500 mg PO DAILY 7 Days #7 tablet 12/24/20 Rx acetaminophen [Tylenol] 325 mg PO ONCE PRN 12/26/20 History ibuprofen 200 mg PO Q6H PRN 12/26/20 History Allergies Allergy/AdvReac Type Severity Reaction Status Date / Time No Known Allergies Allergy Verified 12/26/20 13:02 Vital Signs Vital Signs - 24 hr 12/26/20 12:16 12/26/20 12:57 12/26/20 13:00 Temperature 37.9 C H 38.2 C H Pulse Rate 126 H 105 H 103 H Respiratory Rate 16 15 20 Blood Pressure 136/98 H 134/76 Pulse Oximetry 100 100 100 12/26/20 13:01 12/26/20 13:15 12/26/20 13:30 Temperature Pulse Rate 107 H 102 H Respiratory Rate 16 20 Blood Pressure 143/93 H Pulse Oximetry 100 100 100 12/26/20 13:45 12/26/20 14:04 12/26/20 14:15 Temperature Pulse Rate 107 H Respiratory Rate 23 H Blood Pressure Pulse Oximetry 99 99 98 12/26/20 14:30 12/26/20 14:46 12/26/20 15:24 Temperature Pulse Rate 121 H Respiratory Rate 16 Blood Pressure Pulse Oximetry 99 99 99 12/26/20 15:25 12/26/20 15:30 12/26/20 15:31 Temperature Pulse Rate 115 H 110 H 112 H Respiratory Rate 26 H 28 H 24 H Blood Pressure 152/98 H 150/91 H Pulse Oximetry 98 100 98 12/26/20 15:32 12/26/20 15:45 12/26/20 15:46 Temperature Pulse Rate 110 H 112 H 116 H Respiratory Rate 13 26 H Blo
[2020-12-26 19:52] LABS: Hepatitis B Surface Antigen Negative (Negative)
[2020-12-26 19:58] LABS: HAV RESULT Negative (Negative); Hepatitis B Core IgM Result Negative (Negative)
[2020-12-26] MEDS: guaiFENesin 600 MG/DEXTROMETHORPHAN 30 MG SR TAB 12 HR 1 TAB PO (20:00)
[2020-12-26 20:10] LABS: Hepatitis C Virus Antibody Negative (Negative)
[2020-12-27] VITALS (7 sets, daily range): BP systolic 135–143; BP diastolic 72–85; PULSE 83–100; RESP 16–20; TEMP 37–37.6; O2SAT 94–97
[2020-12-27] MEDS: SODIUM CHLORIDE 0.9% IV 1,000 ML 125 ML IV CONT ×2 (02:15→11:18)
[2020-12-27] MEDS: BENZOCAINE/MENTHOL (*BKC) 18 EA LOZENGE 1 LOZENGE PO (02:16)
--- NOTE | 2020-12-27 03:21 | PM.IMHP ---
H&P: HPI History of Present Illness Date/Time: 12/27/20 03:21 Chief Complaint: FEVERS Narrative: THIS IS A 30-YEAR-OLD MALE WITH NON SIGNIFICANT PAST MEDICAL HISTORY PATIENT PRESENTED TO EMERGENCY AFTER HE HAS BEEN HAVING 3 DAYS OF FEVERS ,MYALGIAS, SORE THROAT ,NAUSEA ,VOMITING, DIARRHEA ,NO RASHES HE HAD BEEN IN TO A [facility] RO[facility] WHERE HE WAS PRESCRIBED LEVOFLOXACIN AND SENT HOME HE HAS BEEN TAKING IBUPROFEN AND TYLENOL AT HOME FOR FEVERS I HAS BEEN DRINKING PLENTY OF WATER TO REMAIN HYDRATED HOWEVER FEVER HAS NOT SUBSIDED AND HE CONTINUES TO HAVE THROAT PAIN. PRELIMINARY WORKUP WAS SIGNIFICANT FOR SLIGHTLY ELEVATED AST AND ALT AND ALK PHOS AT [address] OF ABDOMEN AND PELVIS DID NOT SHOW ANY REMARKABLE FINDINGS A CHEST X-RAY WAS CLEAR S SOFT TISSUE OF THE NECK SHOWS SOME ENLARGED LYMPHADENOPATHIES AND TONSILS AND RETROPHARYNGEAL EFFUSION. HE ALSO RECEIVED ZOSYN IN THE EMERGENCY WHICH HAS BEEN NOW DISCONTINUED. PATIENT HAS BEEN PLACED IN OBSERVATION AND ENT CONSULT HAS BEEN PLACED. Review of Systems Review of Systems: FEVERS CHILLS GENERAL MALAISE SORE THROAT NAUSEA VOMITING DIARRHEA MYALGIA Constitutional: Constitutional: Reports chills, Denies fatigue, Reports fever(s) and Reports malaise Eyes: Eyes: Denies change in vision ENT: Denies dysphagia, Denies nasal congestion, Denies nasal discharge, Denies nasal obstruction and Reports odynophagia Comments: SORE THROAT Cardiovascular: Cardiovascular: Denies irregular heart rhythm, Denies lightheadedness, Denies radiating jaw, neck or arm pain, Denies palpitations, Denies dyspnea on exertion and Denies orthopnea Respiratory: Respiratory: Denies cough and Denies dyspnea Gastrointestinal: Gastrointestinal: Denies abdominal pain, Reports diarrhea, Reports nausea and Reports vomiting Genitourinary: Genitourinary: Reports no additional male genitourinary complaints Musculoskeletal: Musculoskeletal: Reports myalgias Integumentary/Breasts: Skin/Breast: Reports system reviewed and no additional complaints, except as docu Neurologic: Reports system reviewed and no additional complaints, except as documented Psychiatric: Psychiatric: Reports no additional psychiatric complaints Endocrine: Endocrine: Reports no additional endocrine complaints Hematologic/Lymphatic: Hematologic/Lymphatic: Reports no additional hematologic/lymphatic complaints Allergic/Immunologic: Allergic/Immunologic: Reports no additional allergic/immunologic complaints PMFSH Past Medical History Medical History Chronic anxiety History of fracture of right ankle Pain of left sacroiliac joint Surgical History Surgical History Hx of foot surgery (~2006) Family History Family History Mother No problems noted. Grandparent Hypertension Social History Social History Smoking packs per day: 0.5 Smoking cigarettes per day: 10.0 Smoking status: Current every day smoker Tobacco type: cigarettes Second hand tobacco smoke exposure: Yes Alcohol intake: current Substance use: current Substance use type: marijuana Gender identity (if verbalized by the patient): Male Spiritual care concerns: No Meds Home Medications and Allergies Home Medications Medication Instructions Recorded Confirmed Type benzonatate [Tessalon Perles] 100 mg PO TID #20 cap 12/24/20 Rx levofloxacin 500 mg PO DAILY 7 Days #7 tablet 12/24/20 Rx acetaminophen [Tylenol] 325 mg PO ONCE PRN 12/26/20 History ibuprofen 200 mg PO Q6H PRN 12/26/20 History Allergies Allergy/AdvReac Type Severity Reaction Status Date / Time No Known Allergies Allergy Verified 12/26/20 13:02 Vital Signs Vital Signs - 24 hr 12/26/20 12:16 12/26/20 12:57 12/26/20 13:00 Temperature 100.2 F H 100.7 F H Pulse Rate
[2020-12-27] MEDS: KETOROLAC 15 MG/ML VIAL (*BKC) IV PUSH (04:39)
[2020-12-27 06:20] LABS: Hematocrit 40.6 % (42.0-52.0); Mean Corpuscular HGB Conc 34.5 g/dl (32-36); Mean Corpuscular Hemoglobin 30.7 pg (26-34); Mean Platelet Volume 10.6 fl (7.4-10.4); Platelet Count Result 179 k/mm3 (150-375); Red Blood Count 4.56 M/mm3 (4.6-6.20); Red Cell Distribution Width 13.1 % (11.5-14.5); White Blood Count 17.6 K/mm3 (4.5-10.0)
[2020-12-27 06:36] LABS: Alanine Aminotransferase 91 U/L (4-50); Alkaline Phosphatase 182 U/L (38-126); Anion Gap 12 mmol/L (8-16); Aspartate Amino Transferase 60 U/L (17-59); Bilirubin,Total 0.8 mg/dL (0.2-1.3); Blood Urea Nitrogen 13 mg/dL (9-20); Calcium 8.9 mg/dL (8.4-10.2); Carbon Dioxide 24 mmol/L (22-30); Chloride 101 mmol/L (98-107); Estimated CRCL calculation 148 ml/min; Estimated Glomerular Filt Rate > 60; Glucose 177 mg/dL (65-110); Potassium 3.7 mmol/L (3.4-5.0); Sodium 137 mmol/L (137-145)
[2020-12-27 07:39] LABS: Band Neutrophils Percent 20 % (0-6); Monocytes Absolute Manual 1.23 K/mm3 (0.1-0.90); Monocytes Percent Manual 7 % (3-9); Neutrophils Absolute Manual 15.66 K/mm3 (1.3-6.7); Neutrophils Percent Manual 69 % (46-73); Platelet Estimate Adequate (Adequate); Total Cells Counted 100
[2020-12-27] MEDS: guaiFENesin 600 MG/DEXTROMETHORPHAN 30 MG SR TAB 12 HR 1 TAB PO (09:07)
[2020-12-27] MEDS: ACETAMINOPHEN 500 MG TABLET 1000 MG PO (11:15)
--- NOTE | 2020-12-27 12:57 | PM.DS ---
DS: Admitting Diagnosis Discharge Date Date of service 12/27/2020 at 9:30 a.m. Admitting Diagnosis Acute pharyngitis DS: Discharge Diagnosis Discharge Diagnosis (1) Fever: Code(s): R50.9 - Fever, unspecified Status: Acute Assessment and Plan: PATIENT HAS BEEN HAVING FEVERS NONSPECIFIC FOR THE LAST 3 DAYS PRELIMINARY WORKUP IS ESSENTIALLY NONREVEALING BLOOD CULTURES IN PROGRESS SUPPORTIVE CARE RECEIVED SO ZOSYN 1 TIME AND HAS BEEN DISCONTINUED IN THE EMERGENCY ROOM WAS ON LEVOFLOXACIN WITH NO RESOLUTION OR IMPROVEMENT IT HAS BEEN DISCONTINUED UNCLEAR ETIOLOGY LIKELY VIRAL (2) Pharyngitis: Qualifiers: Pharyngitis/tonsillitis etiology: unspecified etiology Qualified Code(s): J02.9 - Acute pharyngitis, unspecified Code(s): J02.9 - Acute pharyngitis, unspecified Status: Acute Assessment and Plan: NO PLAQUES SUPPORTIVE CARE FOLLOW ENT RECOMMENDATIONS (3) Abnormal LFTs (liver function tests): Code(s): R94.5 - Abnormal results of liver function studies Status: Acute Assessment and Plan: A SLIGHT ELEVATION OF ALT AND AST ELEVATION OF ALK PHOS RIGHT UPPER QUADRANT ULTRASOUND IN A.M. CT OF ABDOMEN AND PELVIS UNREMARKABLE AVOID TYLENOL (4) Pneumonia due to COVID-19 virus: Code(s): U07.1 - COVID-19; J12.82 - Pneumonia due to coronavirus disease 2019 Status: Acute Assessment and Plan: PATIENT HAD COVID-19 PNEUMONIA A FEW WEEKS AGO DS: Summary Hospital Course Hospital Course: Patient is a 30-year-old male who is here for acute pharyngitis. Patient originally went to [facility] emergency room where he was prescribed antibiotics and sent home. He has been taking the antibiotics and has been rotating between Tylenol and ibuprofen. He stated Saturday that he was feeling worse. He did say that he was feeling a lot better today and that he was having a hard time swallowing but is but better after the to home or. Patient is a little congested but states that it is better with a cough. Patient did have contact with his son who was sick last week. [place] test was negative. ENT had seen the patient and recommended 3 doses of steroids. He was also noted that the patient does have elevated liver enzymes. CT of the abdomen was unremarkable and ultrasound of the right upper quadrant was also normal. Patient denies being a drinker. Patient did state that he works outside with a [employer] which could indicate allergies. Patient stated that he does have an okay appetite. White blood cell count is elevated at 17.6 over the could be due to steroids every other lab is stable along with his vital signs. Patient denies sweats, fevers, chills, nausea, vomiting, abdominal pain. Status at Discharge Functional status at discharge: independent ambulation Overall status at discharge: patient is back to baseline Time Spent with Patient Time attestation: Total time spent providing and/or coordinating discharge services: 42 minutes Time spent: Greater than 30 minutes Exam Const: General: cooperative, healthy appearing, comfortable, no acute distress, well developed, alert, awake, Physically active and anxious Nutritional Appearance: average body habitus and well nourished Orientation/consciousness: oriented to person, oriented to place, oriented to time and patient oriented x3 Limitations: no limitations HENMT: Head: normal to inspection, normocephalic and atraumatic Ears: hearing grossly normal bilaterally General nose exam: Normal external nose present Face and sinus: normal facial exam Mouth: Yes Normal oral and palatal mucosa present Teeth and gingiva: dentition normal Throat: tonsils normal and uvula midline Eyes: General: appearance normal, both eyes and all related structures Alignment and Position: alignment normal Sclera: sclerae normal Pupils: Equal, round and reactive pupils present EOM: EOMs intact bilaterally Neck: Neck: normal visual inspection, full ROM,
[2020-12-27 18:19] LABS: SARS-CoV-2 RNA PCR Negative
== END 2020-12-27 15:37 | disposition home or self-care (01) | DRG 113 ==
LOC: ANHED 12:35 → ANH3MEDSUR 17:42
PROVIDERS: Admitting Provider Internal Medicine; Emergency Provider Emergency Medicine; Visit Provider Internal Medicine
DX: R50.9 Fever, unspecified; Z20.822 Contact with and (suspected) exposure to COVID-19; R94.5 Abnormal results of liver function studies; F17.210 Nicotine dependence, cigarettes, uncomplicated; Z79.899 Other long term (current) drug therapy; J02.9 Acute pharyngitis, unspecified; Z86.16 Personal history of COVID-19
CPT/HCPCS: 36415; 70491; 71046; 74177; 76705; 80053; 80074; 81001; 83605; 83690; 85025; 86308; 87040; 87081; 87880; 96360; 99285; A9270; C9803; J1100; J1885; J2543; J7030; Q9967; U0003; U0005

== ENCOUNTER 2021-01-05 15:30 | Emergency (ER) | payer SELFPAY ==
[2021-01-05 15:33] VITALS: BP 140/95; PULSE 87; RESP 16; TEMP 36.2; O2SAT 99
--- NOTE | 2021-01-05 15:47 | ED.NEUROSD ---
HPI - Neuro Symptoms/Deficit General Chief Complaint: Neuro Symptoms/Deficit Stated Complaint: FACE DROOPING Source: patient Mode of arrival: ambulatory Limitations: no limitations History of Present Illness HPI Narrative: patient is a young man 30 years old that presents with some a facial palsy affecting his left eye and left facial droop with no history of CAD no peripheral vascular disease no stroke history, the patient recently was diagnosed with COVID and and pneumonia and is currently on antibiotics for pneumonia. Patient woke up with a watery left eye with a left facial droop with no fever chills no nausea vomiting no other neurological deficits. Onset (ago): day(s) Severity: mild Related Data Allergies Allergy/AdvReac Type Severity Reaction Status Date / Time No Known Allergies Allergy Verified 12/26/20 13:02 Review of Systems Review of Systems: All systems reviewed & are unremarkable except as noted in HPI and below PMFSH Past Medical History Medical History Chronic anxiety History of fracture of right ankle Pain of left sacroiliac joint Surgical History Surgical History Hx of foot surgery (~2006) Family History Family History Mother No problems noted. Grandparent Hypertension Social History Social History Smoking packs per day: 0.5 Smoking cigarettes per day: 10.0 Smoking status: Current every day smoker Tobacco type: cigarettes Second hand tobacco smoke exposure: Yes Alcohol intake: current Substance use: current Substance use type: marijuana Gender identity (if verbalized by the patient): Male Spiritual care concerns: No Exam Const: General: no acute distress and alert Orientation/consciousness: patient oriented x3 HENMT: Head: normal to inspection Eyes: Pupils: Equal, round and reactive pupils present Other: Difficulty shutting his left eye Neck: Neck: normal visual inspection Chest: Chest palpation & inspection: normal inspection of the chest Resp: Effort & Inspection: normal respiratory effort GI: GI Palp: Yes Soft to palpation Urinary Catheter: Urinary Catheter: patent and draining Neuro: General: patient oriented x3, moves all extremities, no meningeal signs, no focal motor deficits and CN's II-XI intact bilaterally Extrem: General: normal to inspection and no pedal edema Psych: Mental Status: mental status grossly normal Affect: normal affect Attitude: cooperative Course Course Emergency Course: patient received p.o. prednisone and p.o. acyclovir and advised if take medication as prescribed and follow-up with his primary care physician as scheduled. Vital Signs Vital signs: Vital Signs Temperature 36.2 C L 01/05/21 15:33 Pulse Rate 87 01/05/21 15:33 Respiratory Rate 16 01/05/21 15:33 Blood Pressure 140/95 H 01/05/21 15:33 Pulse Oximetry 99 01/05/21 15:33 Temperature 36.2 C L 01/05/21 15:33 Pulse Rate 87 01/05/21 15:33 Respiratory Rate 16 01/05/21 15:33 Blood Pressure 140/95 H 01/05/21 15:33 Pulse Oximetry 99 01/05/21 15:33 Critical Care Time Critical Care Time Critical Care Time: No Discharge Plan Discharge Clinical Impression: Roberson's palsy Instructions: Roberson Palsy (ED) Additional Instructions: take medicine as prescribed and follow-up with primary care physician as scheduled. Prescriptions: New prednisone 20 mg tablet 20 mg PO DAILY 5 Days Qty: 5 RF: 0 acyclovir 400 mg tablet 400 mg PO TID Qty: 20 RF: 0 No Action amoxicillin-pot clavulanate 875-125 mg tablet 1 tablet PO Q12H Qty: 20 RF: 0 Follow-up/Referrals: UNKNOWN,DOCTOR [Primary Care Provider] - Time of Disposition: 15:52
[2021-01-05] MEDS: predniSONE 20 MG TABLET PO (15:53)
[2021-01-05] MEDS: ACYCLOVIR 200 MG CAPSULE 400 MG PO (15:53)
== END 2021-01-05 16:00 | disposition home or self-care (01) ==
PROVIDERS: Emergency Provider Emergency Medicine
DX: G51.0 Bell's palsy (principal); J18.9 Pneumonia, unspecified organism; I25.10 Atherosclerotic heart disease of native coronary artery without angina pectoris; F41.9 Anxiety disorder, unspecified; F17.210 Nicotine dependence, cigarettes, uncomplicated; Z86.16 Personal history of COVID-19
CPT/HCPCS: 99283; A9270; J7512

== ENCOUNTER 2021-01-25 11:58 | Outpatient (CLI) | payer SELFPAY ==
--- NOTE | ~2021-01-25 | XR_ITS ---
EXAMINATION: XR chest 2V 01/25/2021 12:57 INDICATION: Cough. Pneumonia. PROCEDURE: 2 view chest COMPARISON: 12/26/2020 FINDINGS: The lungs are clear. The cardiomediastinal silhouette is within normal limits. There are no pleural effusions. There is no pneumothorax suspected. IMPRESSION: 1: NO ACUTE CARDIOPULMONARY DISEASE. Reviewed, dictated and finalized at location B.
== END 2021-01-25 11:59 | disposition home or self-care (01) ==
LOC: ANHIMG 12:00
PROVIDERS: PCP Physician Assistant; Visit Provider Physician Assistant
DX: R05.9 Cough, unspecified (principal)
CPT/HCPCS: 71046

== ENCOUNTER 2022-08-27 12:33 | Emergency (ER) | payer SELFPAY ==
[2022-08-27 12:37] VITALS: BP 137/96; PULSE 117; RESP 20; TEMP 37; O2SAT 95
--- NOTE | 2022-08-27 12:58 | ED.GENADULT ---
HPI - General Adult General Chief complaint: Upper Respiratory Infection Stated complaint: sore throat Time Seen by Provider: 08/27/22 12:57 Source: patient Mode of arrival: ambulatory Limitations: no limitations History of Present Illness HPI narrative: 32-year-old white male presents with a 3 to four-day history of a sore throat, reports he felt quite rough over the weekend, did have some muscle aches, did have some nausea, had emesis x1. Reports that he could see how swollen his tonsils were in the white patches on. He had some family in last week from [place], and 1 of them had been ill. Denies sinus drainage, denies any on going abdominal pain, nausea or vomiting, denies diarrhea, constipation, dysuria urgency or frequency. Related Data Allergies Allergy/AdvReac Type Severity Reaction Status Date / Time No Known Allergies Allergy Verified 01/06/21 14:17 Review of Systems Review of Systems: All systems reviewed & are unremarkable except as noted in HPI and below (HPI) PMFSH Past Medical History Medical History Chronic anxiety History of fracture of right ankle Pain of left sacroiliac joint Surgical History Surgical History Hx of foot surgery (~2006) Family History Family History Mother Hypertension Grandparent Hypertension Cerebrovascular accident Cancer Social History Social History Smoking packs per day: 0.5 Smoking cigarettes per day: 10.0 Smoking status: Former smoker Tobacco type: cigarettes Second hand tobacco smoke exposure: Yes Alcohol intake: current Substance use: unknown Substance use type: marijuana Gender identity (if verbalized by the patient): Male Spiritual care concerns: No Exam Narrative: pleasant, well oriented, no acute hypopharynx shows tonsils to be quite enlarged, erythematous, white exudates present, no asymmetry Moderate to extensive anterior cervical adenopathy is present Const: General: healthy appearing Nutritional Appearance: well nourished Orientation/consciousness: patient oriented x3 Limitations: no limitations HENMT: Head: normal to inspection Ears: external ears normal Face and sinus: normal facial exam Teeth and gingiva: dentition normal Other: see above Eyes: Conjunctivae: conjunctivae normal Pupils: Equal, round and reactive pupils present EOM: EOMs intact bilaterally Neck: Neck: normal visual inspection Chest: Chest palpation & inspection: normal inspection of the chest Resp: Effort & Inspection: normal respiratory effort Cardio: Rate: regular rate Rhythm: regular rhythm Skin: General skin exam: normal color Rashes: no rashes Wounds: no wounds Neuro: General: patient oriented x3 Speech: normal speech Gait exam (Neuro): Normal gait present Extrem: General: normal to inspection Psych: Mental Status: mental status grossly normal Affect: normal affect Attitude: cooperative Course Course Emergency Course: differential diagnosis includes but is not limited to strep, viral syndrome, viral pharyngitis, however his history and physical are highly consistent with strep. strep is positive. Will go ahead and treat with amoxicillin, and a short course of prednisone to reduce the swelling Vital Signs Vital signs: Vital Signs Temperature 37.0 C 08/27/22 12:37 Pulse Rate 117 H 08/27/22 12:37 Respiratory Rate 20 08/27/22 12:37 Blood Pressure 137/96 H 08/27/22 12:37 Pulse Oximetry 95 08/27/22 12:37 Oxygen Delivery Room Air 08/27/22 12:37 Temperature 37.0 C 08/27/22 12:37 Pulse Rate 117 H 08/27/22 12:37 Respiratory Rate 20 08/27/22 12:37 Blood Pressure 137/96 H 08/27/22 12:37 Pulse Oximetry 95 08/27/22 12:37 Oxygen Delivery Room Air 08/27/22 12:37
[2022-08-27 13:11] LABS: Strep Group A RT-PCR DETECTED (Negative)
== END 2022-08-27 13:19 | disposition home or self-care (01) ==
PROVIDERS: Emergency Provider Emergency Medicine
DX: J02.9 Acute pharyngitis, unspecified (principal); Z87.891 Personal history of nicotine dependence
CPT/HCPCS: 87651; 99283

== ENCOUNTER 2022-11-17 14:25 | Emergency (ER) | payer SELFPAY ==
[2022-11-17 14:25] VITALS: BP 133/91; PULSE 88; RESP 16; TEMP 35.8; O2SAT 95
--- NOTE | 2022-11-17 14:36 | ED.SKABFB ---
HPI - Skin/Abscess/Foreign Bdy General Chief complaint: Skin/Abscess/Foreign Body Stated complaint: abscess left leg Time Seen by Provider: 11/17/22 14:30 Source: patient Mode of arrival: ambulatory Limitations: no limitations History of Present Illness HPI narrative: patient is a 32-year-old male with multiple red areas on his thighs after swimming in the [place]. No fever or chills. complaint: rash Onset (ago): day(s) Tetanus up to date: yes Location: LLE and RLE Severity: moderate Severity scale (1-10): 3 Quality: burning and pruritic Pain Consistency: constant Relieving factors: none Exacerbating factors: none Context: none Associated symptoms: denies other symptoms Treatments prior to arrival: none Related Data Allergies Allergy/AdvReac Type Severity Reaction Status Date / Time No Known Allergies Allergy Verified 01/06/21 14:17 Review of Systems Review of Systems: All systems reviewed & are unremarkable except as noted in HPI and below Constitutional: Constitutional: Reports no additional constitutional complaints Eyes: Eyes: Reports no additional eye complaints ENT: Reports system reviewed and no additional complaints, except as documented Cardiovascular: Cardiovascular: Reports no additional cardiovascular complaints Respiratory: Respiratory: Reports no additional respiratory complaints Gastrointestinal: Gastrointestinal: Reports no additional gastrointestinal complaints Genitourinary: Genitourinary: Reports no additional male genitourinary complaints Musculoskeletal: Musculoskeletal: Reports no additional musculoskeletal complaints Integumentary/Breasts: Skin/Breast: Reports system reviewed and no additional complaints, except as docu Neurologic: Reports system reviewed and no additional complaints, except as documented Psychiatric: Psychiatric: Reports no additional psychiatric complaints Endocrine: Endocrine: Reports no additional endocrine complaints Hematologic/Lymphatic: Hematologic/Lymphatic: Reports no additional hematologic/lymphatic complaints Allergic/Immunologic: Allergic/Immunologic: Reports no additional allergic/immunologic complaints PMF Past Medical History Medical History Chronic anxiety History of fracture of right ankle Pain of left sacroiliac joint Surgical History Surgical History Hx of foot surgery (~2006) Family History Family History Mother Hypertension Grandparent Hypertension Cerebrovascular accident Cancer Social History Social History Smoking packs per day: 0.5 Smoking cigarettes per day: 10.0 Smoking status: Former smoker Tobacco type: cigarettes Second hand tobacco smoke exposure: Yes Alcohol intake: current Substance use: unknown Substance use type: marijuana Gender identity (if verbalized by the patient): Male Spiritual care concerns: No Exam Const: General: healthy appearing Nutritional Appearance: well nourished Orientation/consciousness: patient oriented x3 HENMT: Head: normal to inspection Ears: external ears normal Face/Nose/Sinus: Normal external nose present Eyes: Conjunctivae: conjunctivae normal Pupils: Equal, round and reactive pupils present EOM: EOMs intact bilaterally Cardio: Rate: regular rate Rhythm: regular rhythm Heart sounds: no murmurs GI: Inspection: non-distended GI Palp: Yes Soft to palpation and No Tenderness to palpation present (GI) Auscultation: normal bowel sounds : General: Yes bladder normal to palpation Back/Spine/Pelvis: Back: no CVA tenderness Skin: General skin exam: normal color Rashes: rash noted Other: Multiple left inner thigh red raised lesions of folliculitis and localized cellulitis without abscess; x1 on the right thigh Neuro: Gen
== END 2022-11-17 15:08 | disposition home or self-care (01) ==
LOC: CHSED 15:03
PROVIDERS: Emergency Provider Emergency Medicine
DX: L73.9 Follicular disorder, unspecified (principal); Z87.891 Personal history of nicotine dependence
CPT/HCPCS: 99283

== ENCOUNTER 2023-03-18 13:00 | Emergency (ER) | payer SELFPAY ==
--- NOTE | ~2023-03-18 | XR_ITS ---
EXAMINATION: XR hand RT min 3V DATE: 03/18/2023 13:26 INDICATION: Right hand injury and pain. TECHNIQUE: 3 views of right hand were obtained. COMPARISON: None. FINDINGS: There is a displaced chip fracture of tuft of second distal phalanx. There is a punctate ra diopaque foreign body versus calcification radial to base of second distal phalanx. There is mild ost eoarthritis of first interphalangeal joint. IMPRESSION: 1. Displaced chip fracture of tuft of second distal phalanx. 2. Punctate radiopaque foreign body versus calcification radial to base of second distal phalanx. Reviewed, dictated and finalized at location A. STANT SITE MANAGER IMPRESSION: 1. Displaced chip fracture of tuft of second distal phalanx. 2. Punctate radiopaque foreign body versus calcification radial to base of [place] distal phalanx.
[2023-03-18 13:00] VITALS: BP 156/97; PULSE 78; RESP 16; TEMP 36.8; O2SAT 96
--- NOTE | 2023-03-18 13:42 | ED.GENADULT ---
HPI - General Adult General Chief complaint: Extremity Injury, Upper Stated complaint: right finger injury Time Seen by Provider: 03/18/23 13:16 History of Present Illness HPI narrative: 33yo man presents with nail laceration to his right index finger, bruising to his middle finger, after trying to remove a tanning bed from his house and he got the two fingers caught on the hinge side. Part of the index finger nail detached. Related Data Allergies Allergy/AdvReac Type Severity Reaction Status Date / Time No Known Allergies Allergy Verified 03/18/23 13:09 Review of Systems Review of Systems: All systems reviewed & are unremarkable except as noted in HPI and below Constitutional: Constitutional: Denies chills and Denies fever(s) ENT: Denies dysphagia Cardiovascular: Cardiovascular: Denies chest pain Respiratory: Respiratory: Denies dyspnea Gastrointestinal: Gastrointestinal: Denies abdominal pain PMFSH Past Medical History Medical History Chronic anxiety History of fracture of right ankle Pain of left sacroiliac joint Surgical History Surgical History Hx of foot surgery (~2006) Family History Family History Mother Hypertension Grandparent Hypertension Cerebrovascular accident Cancer Social History Social History Smoking packs per day: 0.5 Smoking cigarettes per day: 10.0 Smoking status: Former smoker Tobacco type: cigarettes Second hand tobacco smoke exposure: Yes Alcohol intake: current Substance use: unknown Substance use type: marijuana Gender identity (if verbalized by the patient): Male Spiritual care concerns: No Exam Const: General: healthy appearing and no acute distress Nutritional Appearance: well nourished Eyes: Conjunctivae: conjunctivae normal Resp: Effort & Inspection: normal respiratory effort Skin: General skin exam: normal color, no jaundice and no pallor Neuro: General: patient oriented x3 and moves all extremities Other: intact ROM all digits Extrem: Other: right index finger nail is partially avulsed. No other laceration. Minimal swelling. Intact ROM. No ecchymosis. Course Vital Signs Vital signs: Vital Signs Temperature 36.8 C 03/18/23 13:00 Pulse Rate 78 03/18/23 13:00 Respiratory Rate 16 03/18/23 13:00 Blood Pressure 156/97 H 03/18/23 13:00 Pulse Oximetry 96 03/18/23 13:00 Oxygen Delivery Room Air 03/18/23 13:00 Temperature 36.8 C 03/18/23 13:00 Pulse Rate 78 03/18/23 13:00 Respiratory Rate 16 03/18/23 13:00 Blood Pressure 156/97 H 03/18/23 13:00 Pulse Oximetry 96 03/18/23 13:00 Oxygen Delivery Room Air 03/18/23 13:00 Medical Decision Making MDM Narrative Medical decision making narrative: blunt finger trauma DDx laceration, contusion, fracture Laceration is in the nailbed deep to the nail. Not amenable to repair. Will leave remaining nail undisturbed to avoid converting closed tuft fracture to an open one. Vital Signs Vital Signs: Vital Signs Temperature 36.8 C 03/18/23 13:00 Pulse Rate 78 03/18/23 13:00 Respiratory Rate 16 03/18/23 13:00 Blood Pressure 156/97 H 03/18/23 13:00 Pulse Oximetry 96 03/18/23 13:00 Oxygen Delivery Room Air 03/18/23 13:00 Temperature 36.8 C 03/18/23 13:00 Pulse Rate 78 03/18/23 13:00 Respiratory Rate 16 03/18/23 13:00 Blood Pressure 156/97 H 03/18/23 13:00 Pulse Oximetry 96 03/18/23 13:00 Oxygen Delivery Room Air 03/18/23 13:00 Discharge Plan Discharge Clinical Impression: Closed fracture of tuft of distal phalanx of right index finger Laceration of right index finger with damage to nail Qualifiers: Encounter type: initial encounter Foreign body pre
[2023-03-18] MEDS: TETANUS,DIPHTHERIA,AC PERTUSSIS ADULT 0.5 ML (ADACEL) IM (13:50)
[2023-03-18] MEDS: HYDROcodone/acetaminophen (*CRX) 5-325 MG TABLET 2 TAB PO (13:50)
[2023-03-18 14:05] VITALS: BP 118/69; PULSE 63; RESP 16; O2SAT 100
== END 2023-03-18 14:10 | disposition home or self-care (01) ==
PROVIDERS: Emergency Provider Emergency Medicine
DX: S62.630A Displaced fracture of distal phalanx of right index finger, initial encounter for closed fracture (principal); Z87.891 Personal history of nicotine dependence; Z23 Encounter for immunization; W31.89XA Contact with other specified machinery, initial encounter
CPT/HCPCS: 29130; 73130; 90471; 90715; 99284; A9270

== ENCOUNTER 2023-03-18 20:46 | Emergency (ER) | payer SELFPAY ==
[2023-03-18 21:08] VITALS: BP 143/88; PULSE 91; RESP 18; TEMP 36.8; O2SAT 97
--- NOTE | 2023-03-18 21:08 | ED.GENADULT ---
HPI - General Adult General Chief complaint: Wound/Laceration Stated complaint: finger lac repair, bleeding History of Present Illness HPI narrative: 33yo man seen earlier with fingernail laceration and underlying tuft fracture of the right index finger, not amenable to repair due to entire width of the nail still intact, returns for continued bleeding through the dressing. Wound re-examined and is simply slowly oozing. Pressure dressing placed and is hemostatic. Related Data Allergies Allergy/AdvReac Type Severity Reaction Status Date / Time No Known Allergies Allergy Verified 03/18/23 21:13 Review of Systems Review of Systems: All systems reviewed & are unremarkable except as noted in HPI and below Constitutional: Constitutional: Denies fever(s) ENT: Denies dysphagia Cardiovascular: Cardiovascular: Denies chest pain Respiratory: Respiratory: Denies dyspnea Gastrointestinal: Gastrointestinal: Denies abdominal pain PMFSH Past Medical History Medical History Chronic anxiety History of fracture of right ankle Pain of left sacroiliac joint Surgical History Surgical History Hx of foot surgery (~2006) Family History Family History Mother Hypertension Grandparent Hypertension Cerebrovascular accident Cancer Social History Social History Smoking packs per day: 0.5 Smoking cigarettes per day: 10.0 Smoking status: Former smoker Tobacco type: cigarettes Second hand tobacco smoke exposure: Yes Alcohol intake: current Substance use: unknown Substance use type: marijuana Gender identity (if verbalized by the patient): Male Spiritual care concerns: No Exam Const: General: healthy appearing and no acute distress Nutritional Appearance: well nourished Skin: General skin exam: normal color, no jaundice and no pallor Other: right index finger nailbed laceration remains well approximated, intact breadth of nail present. Slow venous oozing responds well to gentle pressure. Dressed with xeroform and [place] wrapped for hemostasis. Neuro: General: patient oriented x3 and moves all extremities Extrem: Other: see skin exam Discharge Plan Discharge Clinical Impression: Laceration without foreign body of right index finger with damage to nail, subsequent encounter, Closed fracture of tuft of distal phalanx of right index finger Patient Disposition: Home, Self-Care Condition: Improved Prescriptions: No Action hydrocodone-acetaminophen 5-325 mg tablet 1 tablet PO Q6H PRN (Reason: severe pain only) Qty: 20 0RF Follow-up/Referrals: UNKNOWN,DOCTOR [Primary Care Provider] - Time of Disposition: 21:13
== END 2023-03-18 21:21 | disposition home or self-care (01) ==
PROVIDERS: Emergency Provider Emergency Medicine
DX: S62.630D Displaced fracture of distal phalanx of right index finger, subsequent encounter for fracture with routine healing (principal); S61.210D Laceration without foreign body of right index finger without damage to nail, subsequent encounter; Z87.891 Personal history of nicotine dependence; X58.XXXD Exposure to other specified factors, subsequent encounter
CPT/HCPCS: 99282

== ENCOUNTER 2023-06-07 11:40 | Outpatient (CLI) | payer SELFPAY ==
[2023-06-07 13:09] LABS: Alanine Aminotransferase 41 U/L (16-63); Albumin Level 4.5 g/dL (3.4-5.0); Alkaline Phosphatase 110 U/L (46-116); Anion Gap 12 mmol/L (8-16); Aspartate Amino Transferase 30 U/L (15-37); Bilirubin,Total 0.7 mg/dL (0.00-1.00); Blood Urea Nitrogen 14 mg/dL (7-18); Calcium 9.5 mg/dL (8.5-10.1); Carbon Dioxide 29 mmol/L (21-32); Chloride 98 mmol/L (98-108); Estimated Glomerular Filt Rate > 60; Glucose 142 mg/dL (70-99); Osmolality Calculated 290 mOsm/kg (285-295); Potassium 3.9 mmol/L (3.5-5.1); Sodium 139 mmol/L (136-145); Total Protein 8.1 g/dL (6.4-8.2)
[2023-06-13 21:35] LABS: Metanephrine, Free 50 pg/mL (<=57); Normetanephrine, Free 224 pg/mL (<=148); Total, Free (MN + NMN) 274 pg/mL (<=205)
[2023-06-14 05:16] LABS: Metanephrine, Total Urine 1205 mcg/24 h (115-695); Metanephrine, Urine 195 mcg/24 h (36-190); Normetanephrine, Urine 1010 mcg/24 h (35-482)
== END 2023-06-07 11:41 | disposition home or self-care (01) ==
PROVIDERS: PCP Internal Medicine; Visit Provider Internal Medicine
DX: I10 Essential (primary) hypertension (principal)
CPT/HCPCS: 36415; 80053; 83835

== ENCOUNTER 2023-07-11 09:45 | Outpatient (CLI) | payer OTHER, SELFPAY ==
--- NOTE | ~2023-07-11 | MR_ITS ---
MRI of the abdomen: Clinical indication: Hypertension. Technique: Coronal SSFSE ARC, WATER:coronal LAVA-FLEX, Coronal 2D FIESTA FatSat, Axial SSFSE BH ARC, Axial 3D DualEcho BH, Axial SSFSE-IR, Axial DWI b=500, Axial 2D FIESTA FatSat, pre and dynamic postco ntrast Axial LAVA ARC, postcontrast Coronal In and Opposed phase LAVA FLEX . Following intravenous ad ministration of 20 cc MultiHance gadolinium, T1-weighted fat-sat imaging was performed in the axial a nd coronal planes. Findings: Gallbladder unremarkable. The common bile duct is normal in course and caliber. No filling defects are seen within the CBD. No evidence of intrahepatic biliary ductal dilatation. The pancreati c duct is normal in size. Liver, spleen, pancreas, adrenals, kidneys appear normal. The aorta and the paraaortic regions appear normal. No abnormal postcontrast enhancement seen. Impression: Unremarkable exam. Reviewed, dictated and finalized at location M. Impression: Unremarkable exam.
== END 2023-07-11 09:46 | disposition home or self-care (01) ==
LOC: CHSIMG 09:48
PROVIDERS: PCP Internal Medicine; Visit Provider Internal Medicine
DX: I10 Essential (primary) hypertension (principal)
CPT/HCPCS: 74183; A9577

== ENCOUNTER 2024-04-14 14:42 | Emergency (ER) | payer SELFPAY ==
[2024-04-14] VITALS (23 sets, daily range): BP systolic 134–147; BP diastolic 77–94; PULSE 63–90; RESP 14–24; TEMP 36.6–37.1; O2SAT 95–100
--- NOTE | ~2024-04-14 | XR_ITS ---
CHEST RADIOGRAPH CLINICAL HISTORY: midsternal chest pain . COMPARISON: 01/25/2021 TECHNIQUE: Single portable view of the chest. FINDINGS The cardiomediastinal silhouette is unremarkable. The lungs are clear. Visualized osseous structures and soft tissues are unremarkable. IMPRESSION: No focal infiltrate or effusion. Reviewed, dictated and finalized at location A. T OF WAY MAN
--- NOTE | 2024-04-14 14:52 | ED_ITS ---
HPI - General Adult General Chief complaint: Chest Pain Stated complaint: PAIN WITH BREATHING Time Seen by Provider: 04/14/24 14:52 Source: patient Mode of arrival: ambulatory Limitations: no limitations History of Present Illness HPI narrative: 34-YEAR old white male complains of nonproductive cough wheezing without fever and having substernal chest pain. He has a history of hypertension. patient complains of lower retrosternal chest pain achy feeling 3/10 pain started last night said it was constant but it is worse when he takes a deep breath. Feels like he did when he had pneumonia about 3 or 4 years ago. He is wheezing and coughing up green phlegm when he makes himself cough. He has had runny nose but no sore throat. Denies any problems eating or drinking voiding or stooling rash or itching bleeding or bruising swelling lumps or bumps dizziness or lightheadedness. He has no history of heart or lung disease. He has a history of hypertension he does smoke. Denies alcohol or illicit drug use. No known drug allergies he has had foot surgery no other significant past medical history. Related Data Allergies Allergy/AdvReac Type Severity Reaction Status Date / Time No Known Allergies Allergy Verified 04/14/24 15:03 Review of Systems 2 Review of Systems: All systems reviewed & are unremarkable except as noted in HPI and below PMFSH Past Medical History Medical History History of fracture of right ankle Chronic anxiety Pain of left sacroiliac joint Surgical History Surgical History Hx of foot surgery (~2006) Family History Family History Mother Hypertension Grandparent Hypertension Cerebrovascular accident Cancer Social History Social History Smoking packs per day: 0.5 Smoking cigarettes per day: 10.0 Smoking status: Former smoker Tobacco type: cigarettes Second hand tobacco smoke exposure: Yes Alcohol intake: current Substance use: unknown Substance use type: marijuana Gender identity (if verbalized by the patient): Male Spiritual care concerns: No Comments history hypertension Exam 2 Narrative: ?Patient placed in room: 1 ? History and physical was performed. COVID flu Both negative, RSV positive Troponin 2 hour troponin CBC CMP unremarkable Normal magnesium lactic acid CBC lipase Coags unremarkable, D-dimer normal, chest x-ray no active disease Independent Historian: patient External Source Review: Differential Dx includes but not limited to: pneumonia acute coronary disease asthmatic bronchitis COVID flu RSV Medications were Reviewed: Medications given: DuoNeb, Solu-Medrol 125 3:47 p.m. lungs are clear he feels shen r does not hurt when he takes deep breath he has no pain. Independently Interpreted by me: EKG shows sinus rhythm at a rate of [address] segment elevation in V3 with no ST depression in other leads. Incomplete bundle-branch block. EKG looks similar to EKG done November 2020. 2nd EKG showed sinus rhythm at a rate of 75 right bundle-branch block incomplete. The ST elevation and baseline changes in V3 are gone his EKG looks like his old EKG done in November 2020. Shared decision Making: Evaluation was discussed all questions were asked and answered patient agreed with the plan. albuterol 2 puffs 4 times a day for 10 days Social Situation Impacting Patients Care: DISCHARGE DIAGNOSIS: RSV bronchiolitis DISPOSITION : discharge home CONDITION AT DISCHARGE: stable Course Vital Signs Vital signs: Vital Signs Pulse Oximetry 98 04/14/24 14:45 Oxygen Delivery Room Air 04/14/24 14:45 Temperature 36.7 C 04/14/24 16:40 Pulse Rate 72 04/14/24 16:40 Respiratory Rate 15 04/14/24 16:40 Blood Pressure 145/89 H 04/14/24 16:40 Pulse Oximetry 95 04/14/24 16:40 Oxygen Delivery Room Air 04/14/24 14:[address] [facility] Narrative Medical decision making narrative: ?Patient placed in room: One ? History and physical was performed. Independent Historian: External Source Review: Differential Dx includes but not limited to: Medications were Reviewed: Medications given: Independently Interpreted by me: EKG showed sinus rhythm at a rate of 76 normal axis incomplete right bundle branch block with a QRS of 105 milliseconds irregular baseline in V [address] elevation with no reciprocal ST depressions in other leads. Impression borderline EKG as independently interpreted by me. Shared decision Making: Social Situation Impacting Patients Care: Discussed with Dr. YU DIAGNOSIS: DISPOSITION : CONDITION AT DISCHARGE: Vital Signs Vital Signs: Vital Signs Pulse Oximetry 98 04/14/24 14:45 Oxygen Delivery Room Air 04/14/24 14:45 Temperature 36.7 C 04/14/24 16:40 Pulse Rate 72 04/14/24 16:40 Respiratory Rate 15 04/14/24 16:40 Blood Pressure 145/89 H 04/14/24 16:40 Pulse Oximetry 95 04/14/24 16:40 Oxygen Delivery Room Air 04/14/24 14:50 Lab Data 04/14/24 15:06 04/14/24 15:06 Labs: Lab Results 04/14/24 Range/Units 15:06 WBC 9.3 (4.8-10.8) K/mm3 RBC 4.80 (4.70-6.10) M/mm3 Hgb 14.8 (14.0-18.0) g/dL Hct 43.4 (40.0-54.0) % MCV 90.4 (78.0-102.0) fL MCH 30.8 (27.0-31.0) pg MCHC 34.1 (32-36) g/dL RDW 12.9 (11.6-14.4) % Plt Count 338 (150-420) K/mm3 MPV 9.2 (8.7-11.0) fl PT 10.5 (9.50-12.1) Seconds INR 0.9 APTT 33.0 H (23.9-30.70) Sec D-Dimer 0.19 (0.19-0.50) mg/L Sodium 140 (136-145) mmol/L Potassium 3.7 (3.5-5.1) mmol/L Chloride 103 (98-108) mmol/L Carbon Dioxide 27 (21-32) mmol/L Anion Gap 10 (4-12) mmol/L BUN 19 H (7-18) mg/dL Creatinine 1.05 (0.70-1.30) mg/dL Estim Creat Clear Calc 97 ml/min Estimated GFR > 60 (59 - ) Glucose 94 (70-99) mg/dL Calculated Osmolality 292 (285-295) mOsm/kg Lactic Acid 0.7 (0.4-2.0) mmol/L Calcium 8.9 (8.5-10.1) mg/dL Magnesium 2.0 (1.8-2.4) mg/dL Total Bilirubin 0.9 (0.00-1.00) mg/dL AST 22 (15-37) U/L ALT 28 (16-63) U/L Alkaline Phosphatase 102 (46-116) U/L Troponin I < 4.0 (0.00-60.4) ng/L Total Protein 7.4 (6.4-8.2) g/dL Albumin 4.2 (3.4-5.0) g/dL Lipase 24 (16-77) U/L Influenza A (RT-PCR) Negative (Negative) Influenza B (RT-PCR) Negative (Negative) RSV (RT-PCR) Positive A (Negative) SARS-CoV-2 RNA (RT-PCR) Negative (Negative) Discharge Plan Discharge Clinical Impression: RSV bronchitis Patient Disposition: Home, Self-Care Condition: Stable Instructions: RSV (Respiratory Syncytial Virus) Infection (ED) Additional Instructions: albuterol 2 puffs 4 times a day for 10 days. May use her nebulizer treatment at home. Return if you get worse or develops any new symptoms. Follow-up with your primary care doctor if any questions or concerns. Patient Language: Polish Prescriptions: New albuterol sulfate [Ventolin HFA] 90 mcg/actuation HFA aerosol inhaler 2 puff inhalation QID 10 Days Qty: 8.5 0RF No Action amlodipine 5 mg tablet 5 mg PO BID Qty: 90 1RF labetalol 100 mg tablet 100 mg PO Q12H Qty: 180 1RF Follow-up/Referrals: UNKNOWN,DOCTOR [Primary Care Provider] - Time of Disposition: 16:42
--- NOTE | 2024-04-14 14:56 | ECG_ITS ---
Test Date: 2024-04-14 16:21:37 Measurements Intervals [place] Rate: 75 P: 62 WI: 177 QRS: 55 QRSD: 106 T: 49 QT: 392 QTc: 439 Interpretive Statements SINUS RHYTHM INCOMPLETE RIGHT BUNDLE BRANCH BLOCK Compared to ECG 04/14/2024 14:53:48 NO SIGNIFICANT CHANGES Electronically Signed On 04-15-2024 15:47:28 HOTHOUSE WORKER by Imelda Childress M.D.
--- NOTE | 2024-04-14 14:56 | ECG_ITS ---
Test Date: 2024-04-14 14:53:48 Measurements Intervals [place] Rate: 76 P: 74 VA: 179 QRS: 70 QRSD: 105 T: 67 QT: 376 QTc: 423 Interpretive Statements SINUS RHYTHM INCOMPLETE RIGHT BUNDLE BRANCH BLOCK No previous ECG available for comparison Electronically Signed On 04-14-2024 17:45:04 WELDER 2ND SHIFT by Imelda Childress M.D.
[2024-04-14 15:15] LABS: Hematocrit 43.4 % (40.0-54.0); Hemoglobin 14.8 g/dL (14.0-18.0); Mean Corpuscular HGB Conc 34.1 g/dL (32-36); Mean Corpuscular Hemoglobin 30.8 pg (27.0-31.0); Mean Corpuscular Volume 90.4 fL (78.0-102.0); Mean Platelet Volume 9.2 fl (8.7-11.0); Platelet Count Result 338 K/mm3 (150-420); Red Cell Distribution Width 12.9 % (11.6-14.4); White Blood Count 9.3 K/mm3 (4.8-10.8)
[2024-04-14] MEDS: IPRATROPIUM 0.5 MG/ALBUTEROL SULFATE 2.5 MG AMPUL.NEB 3 ML INHALATION (15:26)
[2024-04-14] MEDS: methylPREDNISolone SOD SUCC 125 MG VIAL IV PUSH (15:27)
[2024-04-14 15:31] LABS: Alanine Aminotransferase 28 U/L (16-63); Albumin Level 4.2 g/dL (3.4-5.0); Alkaline Phosphatase 102 U/L (46-116); Anion Gap 10 mmol/L (4-12); Aspartate Amino Transferase 22 U/L (15-37); Bilirubin,Total 0.9 mg/dL (0.00-1.00); Blood Urea Nitrogen 19 mg/dL (7-18); Calcium 8.9 mg/dL (8.5-10.1); Carbon Dioxide 27 mmol/L (21-32); Chloride 103 mmol/L (98-108); Estimated CRCL calculation 97 ml/min; Estimated Glomerular Filt Rate > 60; Glucose 94 mg/dL (70-99); Lipase 24 U/L (16-77); Osmolality Calculated 292 mOsm/kg (285-295); Potassium 3.7 mmol/L (3.5-5.1); Sodium 140 mmol/L (136-145); Total Protein 7.4 g/dL (6.4-8.2)
[2024-04-14 15:36] LABS: Lactic Acid Reflex 0.7 mmol/L (0.4-2.0)
[2024-04-14 15:42] LABS: D Dimer 0.19 mg/L (0.19-0.50); INR 0.9; Prothrombin Time 10.5 Seconds (9.50-12.1)
[2024-04-14 15:53] LABS: Influenza A QL RT-PCR Negative (Negative); Influenza B QL RT-PCR Negative (Negative); RSV RNA, RT-PCR Positive (Negative); SARS-CoV-2 RNA PCR Negative (Negative); Troponin I < 4.0 ng/L (0.00-60.4)
== END 2024-04-14 16:43 | disposition home or self-care (01) ==
PROVIDERS: Emergency Provider Emergency Medicine
DX: J20.5 Acute bronchitis due to respiratory syncytial virus (principal); R07.9 Chest pain, unspecified; I10 Essential (primary) hypertension; Z20.822 Contact with and (suspected) exposure to COVID-19; Z87.891 Personal history of nicotine dependence
CPT/HCPCS: 36415; 71045; 80053; 83605; 83690; 83735; 84484; 85027; 85380; 85610; 85730; 87637; 93005; 94640; 96374; 99284; J2919

== ENCOUNTER 2024-05-24 16:27 | Emergency (ER) | payer SELFPAY ==
[2024-05-24] VITALS (15 sets, daily range): BP systolic 134–158; BP diastolic 81–95; PULSE 60–80; RESP 16–20; TEMP 36.8–36.9; O2SAT 93–97
--- NOTE | ~2024-05-24 | XR_ITS ---
EXAMINATION: XR chest 1V portable DATE: 05/24/2024 17:01 INDICATION: Right-sided chest pain TECHNIQUE: frontal view of the chest was obtained. COMPARISON: Chest radiograph dated 04/14/2024 FINDINGS: The lungs remain clear with no focal airspace opacities, pulmonary edema, pleural effusion or pneumot horax. The cardiomediastinal silhouette is normal. Visualized bones and soft tissues are unremarkable . IMPRESSION: 1. Normal chest radiograph. Reviewed, dictated and finalized at location [facility] IMPRESSION: 1. Normal chest radiograph.
--- OUTSIDE RECORDS SUMMARY | 2024-05-24 16:28 | XMS_ITS | Encounter Summary ---
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
--- NOTE | 2024-05-24 16:29 | ED.CHESTPAIN ---
HPI - Chest Pain General Chief Complaint: Chest Pain Stated Complaint: chest pain with inhalation Time Seen by Provider: 05/24/24 16:28 Source: patient Mode of arrival: ambulatory Limitations: no limitations History of Present Illness HPI narrative: 34-year-old with a history of smoking, anxiety, bronchitis bronchospasm presents to the ED with a 2 day history of -- pleuritic chest pain-- pain is located over right anterior chest and radiates backwards. Pain is sharp and noted during inspiration. -- Chronic shortness of breath which she uses his albuterol inhaler -- nonproductive cough no fever or chills complaint: chest pain Onset (ago): day(s) ( 2 days) Timing of current episode: episodic Prior episodes: No Pain location: right chest Pain radiation: back Severity: moderate Relieving factors: nothing Exacerbating factors: inspiration Treatment prior to arrival: none Risk Factors Coronary artery disease risk factors: smoking history and hypertension Related Data Allergies Allergy/AdvReac Type Severity Reaction Status Date / Time No Known Allergies Allergy Verified 05/24/24 16:30 Review of Systems Review of Systems: All systems reviewed & are unremarkable except as noted in HPI and below Constitutional: Constitutional: Reports as per HPI and Reports no additional constitutional complaints Eyes: Eyes: Reports as per HPI and Reports no additional eye complaints ENT: Reports system reviewed and no additional complaints, except as documented and Reports as per HPI Cardiovascular: Cardiovascular: Reports as per HPI, Reports no additional cardiovascular complaints and Reports chest pain Comments: right anterior chest pain which radiates backwards. Respiratory: Respiratory: Reports cough and Reports dyspnea Gastrointestinal: Gastrointestinal: Reports as per HPI and Reports no additional gastrointestinal complaints Genitourinary: Genitourinary: Reports no additional male genitourinary complaints and Reports as per HPI Musculoskeletal: Musculoskeletal: Reports no additional musculoskeletal complaints and Reports as per HPI Integumentary/Breasts: Skin/Breast: Reports system reviewed and no additional complaints, except as docu and Reports as per HPI Neurologic: Reports system reviewed and no additional complaints, except as documented and Reports as per HPI Psychiatric: Psychiatric: Reports no additional psychiatric complaints and Reports as per HPI Endocrine: Endocrine: Reports no additional endocrine complaints and Reports as per HPI Hematologic/Lymphatic: Hematologic/Lymphatic: Reports no additional hematologic/lymphatic complaints and Reports as per HPI Allergic/Immunologic: Allergic/Immunologic: Reports no additional allergic/immunologic complaints and Reports as per HPI [facility] Past Medical History Medical History History of fracture of right ankle Chronic anxiety Pain of left sacroiliac joint Surgical History Surgical History Hx of foot surgery (~2006) Family History Family History Mother Hypertension Grandparent Hypertension Cerebrovascular accident Cancer Social History Social History Smoking packs per day: 0.5 Smoking cigarettes per day: 10.0 Smoking status: Former smoker Tobacco type: cigarettes Second hand tobacco smoke exposure: Yes Alcohol intake: current Substance use: unknown Substance use type: marijuana Gender identity (if verbalized by the patient): Male Spiritual care concerns: No Exam Narrative: Afebrile. Vital stable. Oxygen saturation of 97% on room air with a respiratory rate of 15 Const: General: no acute distress Orientation/consciousness: patient oriented x3 Limitations: no limitations HENMT: Head: normal to inspection Ears: external ears normal Face/Nose/Sinus: Normal external nose present Face and sinus: normal facial exam Mouth: Yes Normal oral and palatal mucosa present Throat: posterior oropharynx normal Eyes: Conjunctivae: conjunctivae normal Pupils: Equal, round and reactive pupils present EOM: EOMs intact bilaterally Direct Ophthalmoscopy: no photophobia Neck: Neck: normal visual inspection, no lymphadenopathy and no meningeal signs Chest: Chest palpation & inspection: normal inspection of the chest Resp: Effort & Inspection: normal respiratory effort Auscultation: rhonchi and diminished lung sounds Cardio: Rate: regular rate Rhythm: regular rhythm GI: Auscultation: normal bowel sounds Other: no tenderness/rigidity/rebound. : General: Yes no CVA tenderness Back/Spine/Pelvis: Back: no CVA tenderness Skin: General skin exam: normal color Rashes: no rashes Wounds: no wounds Neuro: General: patient oriented x3, moves all extremities, no meningeal signs, no focal motor deficits and CN's II-XI intact bilaterally Cranial nerves: Yes Nystagmus not present Speech: normal speech Extrem: General: normal to inspection and no clubbing, cyanosis or edema Psych: Mental Status: mental status grossly normal Affect: normal affect Attitude: cooperative Course Course Emergency Course: Chest wall pain-- patient was noted to have a normal white cell count / D-dimer/troponin. Chest x-ray was unremarkable. EKG did not show any acute findings. This appears to be secondary to chest wall pain/ pleuritic chest pain. Vital Signs Vital signs: Vital Signs Temperature 36.9 C 05/24/24 16:27 Pulse Rate 80 05/24/24 16:27 Respiratory Rate 16 05/24/24 16:27 Blood Pressure 158/91 H 05/24/24 16:27 Pulse Oximetry 96 05/24/24 16:27 Oxygen Delivery Room Air 05/24/24 16:27 Temperature 36.9 C 05/24/24 16:27 Pulse Rate 80 05/24/24 16:27 Respiratory Rate 16 05/24/24 16:27 Blood Pressure 158/91 H 05/24/24 16:27 Pulse Oximetry 96 05/24/24 16:35 Oxygen Delivery Room Air 05/24/24 16:35 MDM - Chest Pain MDM Narrative Medical decision making narrative: Chest wall pain Differential Diagnosis Differential diagnosis: Likely fracture of rib and pneumothorax Lab Data Attestation: I reviewed the patient's lab results. 05/24/24 17:02 05/24/24 17:02 Labs: Lab Results 05/24/24 Range/Units 17:02 WBC 8.4 (4.8-10.8) K/mm3 RBC 5.36 (4.70-6.10) M/mm3 Hgb 16.4 (14.0-18.0) g/dL Hct 48.5 (40.0-54.0) % MCV 90.5 (78.0-102.0) fL MCH 30.6 (27.0-31.0) pg MCHC 33.8 (32-36) g/dL RDW 12.4 (11.6-14.4) % Plt Count 377 (150-420) K/mm3 MPV 9.4 (8.7-11.0) fl Immature Gran % (Auto) 0.2 H (0.0-0.0) % Neut % (Auto) 56.3 (50.0-70.0) % Lymph % (Auto) 29.4 (18.0-42.0) % Rich % (Auto) 10.5 (2.0-11.0) % Eos % (Auto) 3.2 (1.0-6.0) % Baso % (Auto) 0.4 (0.0-1.0) % Lymph # (Auto) 2.47 (1.10-4.50) K/mm3 Rich # (Auto) 0.88 (0.10-0.90) K/mm3 Eos # (Auto) 0.27 (0.02-0.50) K/mm3 Baso # (Auto) 0.03 (0.00-0.10) K/mm3 Abs Immat Gran (auto) 0.02 H (0.00-0.00) K/mm3 Absolute Neuts (auto) 4.72 (1.70-7.20) K/mm3 Absolute Nucleated RBC 0.00 (0.00-0.00) K/mm3 Nucleated RBC % 0.0 (0-0.0) % D-Dimer 0.19 (0.19-0.50) mg/L Sodium 143 (136-145) mmol/L Potassium 3.5 (3.5-5.1) mmol/L Chloride 103 (98-108) mmol/L Carbon Dioxide 28 (21-32) mmol/L Anion Gap 12 (4-12) mmol/L BUN 19 H (7-18) mg/dL Creatinine 1.07 (0.70-1.30) mg/dL Estim Creat Clear Calc 96 ml/min Estimated GFR > 60 (59 - ) Glucose 104 H (70-99) mg/dL Calculated Osmolality 298 H (285-295) mOsm/kg Calcium 9.0 (8.5-10.1) mg/dL Total Bilirubin 0.6 (0.00-1.00) mg/dL AST 13 L (15-37) U/L ALT 26 (16-63) U/L Alkaline Phosphatase 106 (46-116) U/L Troponin I < 4.0 (0.00-60.4) ng/L Total Protein 8.0 (6.4-8.2) g/dL Albumin 4.3 (3.4-5.0) g/dL Influenza A (RT-PCR) Negative (Negative) Influenza B (RT-PCR) Negative (Negative) RSV (RT-PCR) Negative (Negative) SARS-CoV-2 RNA (RT-PCR) Negative (Negative) ECG Data EKG #1: ECG completion date: 05/24/24 ECG completion time: 16:46 Interpretation: normal sinus rhythm. Normal axis. Nonspecific T-wave changes. No ST elevation. Discharge Plan Discharge Clinical Impression: Pleurisy Patient Disposition: Home, Self-Care Condition: Stable Instructions: Antibiotic Form, Pleurisy (ED) Patient Language: Malagasy Prescriptions: No Action albuterol sulfate [Ventolin HFA] 90 mcg/actuation HFA aerosol inhaler 2 puff inhalation QID 10 Days Qty: 8.5 0RF amlodipine 5 mg tablet 5 mg PO BID Qty: 90 1RF labetalol 100 mg tablet 100 mg PO Q12H Qty: 180 1RF Follow-up/Referrals: UNKNOWN,DOCTOR [Primary Care Provider] - Time of Disposition: 17:50
--- OUTSIDE RECORDS SUMMARY | 2024-05-24 16:29 | XMS_ITS | Continuity of Care Document ---
Author Organization [facility] Address [address] [place] [address] Phone Care Team Providers Care Veterinary Hospital Attendant Name Role Phone John Bone Unavailable Unavailable Procedures Procedure Date Office/outpatient Visit, Est Office/outpatient Visit, Est Office/outpatient Visit, Est Office/outpatient Visit, Est Office/outpatient Visit, Est Office/outpatient Visit, Est Office/outpatient Visit, Est Advance Directives Directive Yes / No Effective Date File Name No Information Encounters Encounter Description Practice Location Reason(s) For Visit Diagnoses Date Provider Providers Copied on Encounter Office/outpat ient Visit, [facility] [place], [address], [place], [place], [id number], tel:[phone] SEC [facility] No Information 7 0 Smitha John. [address] [address], [place], [place], [facility], [place]. tel:[phone] Office/outpat ient Visit, [facility] [place], [id number] [place] [address] [address], [place], [place], [id number], [place] tel:[phone] SEC [facility] No Information Jul- 4-201 0 Adair OD Mauri. [address] , [address], [place], [place], [facility], [place]. tel:[phone] Office/outpat ient Visit, [facility], [id number] [place] [address] [address], [place], [place], [id number], [place] tel:[phone] SEC [facility] No Information Apr-2 3-201 0 Adair OD Mauri. [address], [place], [place], [facility], [place]. tel:[phone] Office/outpat ient Visit, [facility], [address] [place] [address] [address], [place], [place], [id number], [place] tel:[phone] [facility] [place] No Information Apr-2 0-201 0 Adair OD Mauri. [address], [place], [place], [facility], [place]. tel:[phone] Office/outpat ient Visit, [facility], [address] [place] [address] [address], [place], [place], [id number], [place] tel:[phone] SEC [facility] No Information Apr-1 6-201 0 Adair OD Mauri. [address], [place], [facility], [place]. tel:[phone] Office/outpat ient Visit, [facility], [address] [place] [address] [address], [place], [place], [id number], [place] tel:[phone] SEC [facility] No Information Apr-1 5-201 0 Adair OD Mauri. [address], [place], [address], [place]. tel:[phone] Office/outpat ient Visit, [facility], [address] [place] [address] [address], [place], [place], [id number], [place] tel:[phone] [facility] [place] No Information Apr-1 4-201 0 Adair OD Mauri. [address], [place], [place], [facility], [place]. tel:[phone] Family History Family Member Type Diagnosis Age At Onset No Information Payers Payer name Insurance type Covered alliance party ID Authoriza tion(s) No Information Social History Type Description Quantity Date Captured Comments Sex Male Smoking Status No Information Chief Complaint And Reason For Visit No Information Reason For Referral Reason For Referral No Information History Of Present Illness Encounter Date Complaint History Of Prese nt Illness No Information Functional Status Date Functional Assessmen t No Information Instructions Date Instruction Additional Infor mation No Information Assessments Type Assessment Date No Information Patient Care Teams Name Effective Dates (start - stop) Status Members No Information
--- OUTSIDE RECORDS SUMMARY | 2024-05-24 16:29 | XMS_ITS | Clinical Summary ---
Author Organization [facility] Address Count includes the [facility] [place] [address] Care Team Providers Care Carcass Splitter Name Role Phone None, Provider MD Primary Care Provider Unavaila ble Allergies No known active allergies Medications HYDROcodone-acet aminophen (NORCO) 5-325 MG tabletIndication s:Acute Pain < 3 Day Supply Take 1 tablet by mouth every 6 (six) hours as needed for Pain. 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 Gender Identity Not on file Sexual Orientation Not on file Last Filed Vital Signs Vital Sign Reading Time Taken Comments Blood Pressure 143/85 01/25/2022 6:45 PM CDT Pulse 97 01/25/2022 6:45 PM CDT Temperature 36.4 C (97.5 F) 01/25/2022 6:45 PM CDT Respiratory Rate 18 01/25/2022 6:45 PM CDT Oxygen Saturation 96% 01/25/2022 6:45 PM CDT Inhaled Oxygen Concentration - - Weight 98 kg (216 lb) 01/25/2022 6:45 PM CDT Height 185.4 cm (6' 1 ) 01/25/2022 6:45 PM CDT Body Mass Index 28.5 01/25/2022 6:45 PM CDT Plan of Treatment Health Maintenance Due Date Last Done Comments Annual Physical 01/18/1991 Hepatitis C 01/18/2006 DTaP, Tdap and Td Vaccines ( 1 - Tdap) 01/18/2007 Hepatitis B Vaccines (1 of 3 - 19+ 3-dose series) 01/18/2007 COVID-19 Vaccine (2023-2 5 season) 2023 Influenza Adult (#1) 2024 HPV Vaccines Aged Out No longer eligi ble based on patient's age to complete this topic Meningococcal B Vaccine Aged Out No l onger eligible based on patient's age to complete this topic Meningococcal Vaccine Aged Out No alyssa sha eligible based on patient's age to complete this topic Pneumococcal Vaccine: Pediat rics (0 to 5 Years) and At-Risk Patients (6 to 64 Years) Aged Out No longer eligible b ased on patient's age to complete this topic RSV Immunizations Under 20 Months Aged Out No longer eligible based on patient's age to complete this topic Care Teams Carcass Splitter Relationship Specialty Start Date End Date None, Provider, PCP - General 01/20/20
--- NOTE | 2024-05-24 16:35 | ECG_ITS ---
Test Date: 2024-05-24 16:46:34 Measurements Intervals [place] Rate: 73 P: 44 GA: 162 QRS: 62 QRSD: 102 T: 55 QT: 402 QTc: 446 Interpretive Statements SINUS RHYTHM INCOMPLETE RIGHT BUNDLE BRANCH BLOCK BORDERLINE ECG NONSPECIFIC T-WAVE ABNORMALITY Compared to ECG 04/14/2024 16:21:37 NO SIGNIFICANT CHANGE Electronically Signed On 05-24-2024 19:05:25 COMB FIXER by Nick English D.O.
--- NOTE | 2024-05-24 16:55 | PC.NURSE ---
Covid culture sent to lab
--- OUTSIDE RECORDS SUMMARY | 2024-05-24 16:58 | XMS_ITS | Encounter Summary ---
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
--- OUTSIDE RECORDS SUMMARY | 2024-05-24 16:58 | XMS_ITS | Clinical Summary ---
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
--- OUTSIDE RECORDS SUMMARY | 2024-05-24 16:58 | XMS_ITS | Continuity of Care Document ---
Author Organization [facility] Address [address] [place] [address] Phone Care Team Providers Care Concrete Vault Maker Name Role Phone John Bone Unavailable Unavailable Procedures Procedure Date Office/outpatient Visit, Est Office/outpatient Visit, Est Office/outpatient Visit, Est Office/outpatient Visit, Est Office/outpatient Visit, Est Office/outpatient Visit, Est Office/outpatient Visit, Est Advance Directives Directive Yes / No Effective Date File Name No Information Encounters Encounter Description Practice Location Reason(s) For Visit Diagnoses Date Provider Providers Copied on Encounter Office/outpat ient Visit, [facility] [place], [address], [place], [place], [id number], tel:[phone] SEC [facility] No Information 7 0 Smitha John. [address] [address], [place], [place], [facility], [place]. tel:[phone] Office/outpat ient Visit, [facility] [place], [address] [place] [address] [address], [place], [place], [address], [place] tel:[phone] SEC [facility] No Information Jul- 4-201 0 Adair OD Mauri. [address] [facility] [place] , [address], [place], [place], [facility], [place]. tel:[phone] Office/outpat ient Visit, [facility], [address] [place] [address] [address], [place], [place], [address], [place] tel:[phone] SEC [facility] No Information Apr-2 3-201 0 Adair OD Mauri. [address], [place], [place], [facility], [place]. tel:[phone] Office/outpat ient Visit, [facility], [address] [place] [address] [address], [place], [place], [address], [place] tel:[phone] [facility] No Information Apr-2 0-201 0 Adair OD Mauri. [address], [place], [place], [facility], [place]. tel:[phone] Office/outpat ient Visit, [facility], [address] [place] [address] [address], [place], [place], [id number], [place] tel:[phone] SEC [facility] No Information Apr-1 6-201 0 Adair OD Mauri. [address], [place], [place], [facility], [place]. tel:[phone] Office/outpat ient Visit, [facility], [address] [place] [address] [address], [place], [place], [id number], [place] tel:[phone] SEC [facility] No Information Apr-1 5-201 0 Adair OD Mauri. [address], [place], [address], [place]. tel:[phone] Office/outpat ient Visit, [facility], [address] [place] [address] [address], [place], [place], [address], [place] tel:[phone] [facility] [place] No Information Apr-1 4-201 0 Adair OD Mauri. [address], [place], [place], [facility], [place]. tel:[phone] Family History Family Member Type Diagnosis Age At Onset No Information Payers Payer name Insurance type Covered republican ID Authoriza tion(s) No Information Social History [...]
[2024-05-24 17:06] LABS: Basophils Absolute Auto 0.03 K/mm3 (0.00-0.10); Basophils Percent Auto 0.4 % (0.0-1.0); Eosinophils Absolute Auto 0.27 K/mm3 (0.02-0.50); Eosinophils Percent Auto 3.2 % (1.0-6.0); Hematocrit 48.5 % (40.0-54.0); Hemoglobin 16.4 g/dL (14.0-18.0); Immature Granulocyte Absolute 0.02 K/mm3 (0.00-0.00); Immature Granulocyte Percent A 0.2 % (0.0-0.0); Lymphocytes Absolute Auto 2.47 K/mm3 (1.10-4.50); Lymphocytes Percent Auto 29.4 % (18.0-42.0); Mean Corpuscular HGB Conc 33.8 g/dL (32-36); Mean Corpuscular Hemoglobin 30.6 pg (27.0-31.0); Mean Corpuscular Volume 90.5 fL (78.0-102.0); Mean Platelet Volume 9.4 fl (8.7-11.0); Monocytes Absolute Auto 0.88 K/mm3 (0.10-0.90); Monocytes Percent Auto 10.5 % (2.0-11.0); Neutrophils Absolute Auto 4.72 K/mm3 (1.70-7.20); Neutrophils Percent Auto 56.3 % (50.0-70.0); Platelet Count Result 377 K/mm3 (150-420); Red Blood Count 5.36 M/mm3 (4.70-6.10); Red Cell Distribution Width 12.4 % (11.6-14.4); White Blood Count 8.4 K/mm3 (4.8-10.8)
[2024-05-24 17:18] LABS: D Dimer 0.19 mg/L (0.19-0.50)
[2024-05-24 17:24] LABS: Alanine Aminotransferase 26 U/L (16-63); Albumin Level 4.3 g/dL (3.4-5.0); Alkaline Phosphatase 106 U/L (46-116); Anion Gap 12 mmol/L (4-12); Aspartate Amino Transferase 13 U/L (15-37); Bilirubin,Total 0.6 mg/dL (0.00-1.00); Blood Urea Nitrogen 19 mg/dL (7-18); Carbon Dioxide 28 mmol/L (21-32); Chloride 103 mmol/L (98-108); Estimated CRCL calculation 96 ml/min; Estimated Glomerular Filt Rate > 60; Glucose 104 mg/dL (70-99); Osmolality Calculated 298 mOsm/kg (285-295); Potassium 3.5 mmol/L (3.5-5.1); Sodium 143 mmol/L (136-145)
[2024-05-24 17:26] LABS: Troponin I < 4.0 ng/L (0.00-60.4)
[2024-05-24 17:44] LABS: SARS-CoV-2 RNA PCR Negative (Negative)
[2024-05-24 17:45] LABS: Influenza A QL RT-PCR Negative (Negative); Influenza B QL RT-PCR Negative (Negative); RSV RNA, RT-PCR Negative (Negative)
== END 2024-05-24 17:55 | disposition home or self-care (01) ==
PROVIDERS: Emergency Provider Internal Medicine Critical Care Medicine
DX: R09.1 Pleurisy (principal); I10 Essential (primary) hypertension; Z87.891 Personal history of nicotine dependence; Z20.822 Contact with and (suspected) exposure to COVID-19
CPT/HCPCS: 36415; 71045; 80053; 84484; 85025; 85380; 87637; 93005; 99284

== ENCOUNTER 2025-02-27 22:22 | Emergency (ER) | payer SELFPAY ==
[2025-02-27 22:23] VITALS: BP 171/93; PULSE 92; RESP 18; TEMP 36.4; O2SAT 96
--- OUTSIDE RECORDS SUMMARY | 2025-02-27 22:27 | XMS_ITS | Clinical Summary ---
Author Organization 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 Gender Identity Not on file Sexual Orientation [...] 6:45 PM CDT Height 185.4 cm (6' 1) 01/25/2022 6:45 PM CDT Body Mass Index 28.5 01/25/2022 6:45 PM CDT Plan of Treatment Health Maintenance Due Date Last Done Comments Annual Physical 01/18/1991 Hepatitis C 01/18/2006 DTaP, Tdap and Td Vaccines ( 1 - Tdap) 01/18/2007 Hepatitis B Vaccines (1 of 3 - 19+ 3-dose series) 01/18/2007 HPV Vaccines (1 - 3-dose SCD M series) 01/18/2015 COVID-19 Vaccine ( - 2024-2 6 season) 2024 Influenza Adult (#1) 2025 Hepatitis A Vaccines Aged Out No long er eligible based on patient's age to complete this topic Meningococcal B Vaccine Aged Out No l onger eligible based on patient's age to complete this topic Meningococcal Vaccine Aged Out No alyssa sha eligible based on patient's age to complete this topic Pneumococcal Vaccine: Pediat rics (0 to 5 Years) and At-Risk Patients (6 to 49 Years) Aged Out No longer eligible b ased on patient's age to complete this topic RSV Immunizations Under 20 Months Aged Out No longer eligible based on patient's age to complete this topic Care Teams Elephant Tamer Relationship Specialty Start Date End Date None, Provider, PCP - General 01/20/20
--- NOTE | 2025-02-27 22:48 | ED.SKABFB ---
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 There is no shortness of breath no audible wheezing no fever chills no nausea vomiting or abdominal pain. complaint: rash Onset (ago): hour(s) Tetanus up to date: no Location: L hand and R hand Severity: moderate Severity scale (1-10): 6 Quality: burning Pain Consistency: constant Related Data Allergies Allergy/AdvReac Type Severity Reaction Status Date / Time No Known Allergies Allergy Verified 02/27/25 22:28 Review of Systems Review of Systems: All systems reviewed & are unremarkable except as noted in HPI and below PMFSH Past Medical History Medical History History of fracture of right ankle Chronic anxiety Pain of left sacroiliac joint Surgical History Surgical History Hx of foot surgery (~2006) Family History Family History Mother Hypertension Grandparent Hypertension Cerebrovascular accident Cancer Social History Social History Smoking packs per day: 0.5 Smoking cigarettes per day: 10.0 Smoking status: Former smoker Tobacco type: cigarettes Second hand tobacco smoke exposure: Yes Alcohol intake: current Substance use: unknown Substance use type: marijuana Gender identity (if verbalized by the patient): Male Spiritual care concerns: No Exam Const: General: healthy appearing and no acute distress Nutritional Appearance: well nourished Orientation/consciousness: patient oriented x3 Chest: Chest palpation & inspection: normal inspection of the chest Resp: Effort & Inspection: normal respiratory effort Auscultation: clear to auscultation bilaterally Cardio: Rate: regular rate Rhythm: regular rhythm GI: Auscultation: normal bowel sounds Skin: Wounds: wounds noted Course Course Emergency Course: Medical decision making narrative: The patient was evaluated by myself in the emergency department. History obtained from the patient was an independent historian physical exam performed witnessed by nurse. Patient with some erythema warmth and tenderness with swelling of the right hand received a dose of Depo-Medrol updated with his tetanus and received a dose of p.o. Augmentin. Repeat assessment: Patient doing well on repeat exam with no acute distress Symptoms are stable since arrival to the emergency department. Repeat vitals are stable Patient agrees with discussion after shared medical decision-making and agrees with discharge All questions answered to the patient's satisfaction. Follow-up in 3 to 5 days. Vital Signs Vital signs: Vital Signs Temperature 36.4 C 02/27/25 22:23 Pulse Rate 92 02/27/25 22:23 Respiratory Rate 18 02/27/25 22:23 Blood Pressure 171/93 H 02/27/25 22:23 Pulse Oximetry 96 02/27/25 22:23 Oxygen Delivery Room Air 02/27/25 22:23 Temperature 36.4 C 02/27/25 22:23 Pulse Rate 92 02/27/25 22:23 Respiratory Rate 18 02/27/25 22:23 Blood Pressure 171/93 H 02/27/25 22:23 Pulse Oximetry 96 02/27/25 22:23 Oxygen Delivery Room Air 02/27/25 22:23 Critical Care Time Critical Care Time Critical Care Time: No Discharge Plan Discharge Clinical Impression: Cellulitis and abscess of hand Patient Disposition: Home Condition: Stable Instructions: Antibiotic Form, Cellulitis (ED) Additional Instructions: Advised patient to take medication as prescribed and to follow with primary within next 3 to 5 days further evaluation and treatment. Patient Language: [place] Prescriptions: New amoxicillin-pot clavulanate [Augmentin] 500-125 mg tablet 1 tablet PO TID Qty: 30 0RF prednisone 20 mg tablet 20 mg PO DAILY 5 Days Qty: 5 0RF No Action albuterol sulfate [Ventolin HFA] 90 mcg/actuation HFA aerosol inhaler 2 puff inhalation QID 10 Days Qty: 8.5 0RF amlodipine 5 mg tablet 5 mg PO BID Qty: 90 1RF labetalol 100 mg tablet 100 mg PO Q12H Qty: 180 1RF Follow-up/Referrals: PHYSICIAN,HOUSEHOLD APPLIANCE ASSEMBLER [Primary Care Provider, Internal Medicine] Time of Disposition: 22:55
[2025-02-27] MEDS: TETANUS,DIPHTHERIA,AC PERTUSSIS ADULT 0.5 ML (ADACEL) IM (22:50)
[2025-02-27] MEDS: methylPREDNISolone ACETATE 40 MG/ML VIAL 80 MG IM (22:51)
== END 2025-02-27 23:08 | disposition home or self-care (01) ==
PROVIDERS: Emergency Provider Emergency Medicine; Referring Provider Internal Medicine
DX: L03.114 Cellulitis of left upper limb (principal); L03.113 Cellulitis of right upper limb; L02.512 Cutaneous abscess of left hand; L02.511 Cutaneous abscess of right hand; Z87.891 Personal history of nicotine dependence; Z23 Encounter for immunization
CPT/HCPCS: 90471; 90715; 96372; 99283; A9270; J1010